=== PATIENT | female | born 1985 | race Caucasian/White ===

== ENCOUNTER 2023-02-28 04:48 | Inpatient (IN) | payer MEDICAID, SELFPAY ==
[2023-02-28] VITALS (44 sets, daily range): BP systolic 108–157; BP diastolic 50–86; PULSE 60–95; RESP 14–33; TEMP 36.3–37.9; O2SAT 95–100; BMI 23.6
--- NOTE | 2023-02-28 04:00 | RT.EKG_ITS ---
APPROVED REPORT Exam: Resting ECG Reason for Exam: syncope Patient Location: E HR:87 bpm ECG Measurements Heart Rate 87 AXIS CO 187 P 62 QRSd 98 QRS 79 QT 377 T 62 QTc 453 Conclusion Sinus rhythm...normal P axis, V-rate 60- 99 Physician: no stemi
--- NOTE | 2023-02-28 04:00 | DI.CT_ITS ---
Exam(s) CT ABDOMEN PELVIS W EXAM: CT ABDOMEN PELVIS W CLINICAL HISTORY: vomiting, umbilical abdominal pain. TECHNIQUE: Imaging Protocol: Axial computed tomography images with coronal and sagittal reformatted images were created and reviewed CONTRAST MATERIAL: Intravenous: Omnipaque-350 100cc Oral: None COMPARISON: No exams were available for comparison FINDINGS: VISUALIZED LUNG BASES: No nodules nor pleural effusions evident. ABDOMEN: LIVER: There are no focal hepatic lesions evident. No dilated intrahepatic ducts. GALLBLADDER/BILIARY: Gallbladder is contracted. No obvious radiopaque calculi within the lumen. CBD is not dilated. PANCREAS: No evidence of pancreatic mass nor dilatation of the pancreatic duct. SPLEEN: Spleen is not enlarged. No obvious intrasplenic lesions. Splenic and portal veins are paten t. ADRENALS: There are no significant adrenal masses. KIDNEYS:No cysts evident. No solid renal masses. No calculi nor hydronephrosis.. ABDOMINAL AORTA: Abdominal aorta is not enlarged. LYMPH NODES:There is no retroperitoneal nor paraaortic adenopathy. ABDOMINAL WALL: No evidence of significant anterior abdominal wall nor inguinal hernia. GI: Stomach and duodenum are patulous/moderately distended. There also appears to be an enteritis pa ttern throughout most of the small bowel loops. PELVIS: GI: The appendix identified in the anterior-lateral aspect of the right lower quadrant. There is henrietta e periappendiceal fat streaking. Pending size is normal. No radiopaque intraluminal contents noted. No evidence of sigmoid diverticulitis. LYMPH NODES: There is no intrapelvic nor inguinal adenopathy. REPRODUCTIVE: Age-appropriate URINARY BLADDER: No calculi nor obvious masses evident OSSEOUS: No fractures and no significant osseous lesions. Some degenerative disc disease noted at L4-5 level. IMPRESSION: 1. There is some mild stranding in the fat around the appendix. Although the appendix exhibits diomedes l size, this may indicate the presence of appendicitis. Correlation with clinical findings and appro priate blood work recommended. 2. The stomach appears patulous/. The duodenum also appears somewhat patulous. There appears to be an enteritis pattern in the small bowel loops. There is no evidence of small-bowel obstruction. 3. There is no ascites. No free air. First read by [facility]. Report called by myself to hospitalist staff 10/25/2022 9:50 a.m. RADIATION DOSE DELIVERED: 569.65mGy.cm Total DLP DATA REPOSITORY: All CT scans at this facility are submitted to the National Radiology Data Registry (NRDR) Dose Index Registry (DIR) with the [employer] (ACR). RADIATION OPTIMIZATION: All CT scans at this facility use at least one of these dose optimization te chniques: automated exposure control; mA and/or kV adjustment per patient size (includes targeted exa ms where dose is matched to clinical indication); or iterative reconstruction.
--- NOTE | 2023-02-28 04:14 | ED.GENADUL_ITS ---
Discharge Plan Disposition Patient Disposition: Admit to [facility] Discharge Details Chief Complaint: OD/Poison Clinical Impression: Acute appendicitis Primary Care Provider: Dionicio Carvajal ED Provider: Paulino Ramírez Home Meds and New Rx's Prescriptions: No Action tramadol 50 MG tablet 1 tab PO PRN PRN ibuprofen 200 MG tablet 1 tab PO PRN PRN amoxicillin 500 MG tablet 500 mg PO BID Qty: 12 0RF oxycodone-acetaminophen 1 TAB tablet 1 tab PO Q6H PRN Qty: 7 0RF Medical Decision Making 37-year-old female presents today from the senior living system for evaluation of syncope. Patient was at intake, she was evaluated, found to be stable, practitioner left the room and when they returned the patient was found to be unresponsive on the ground. She was given 3 rounds of Narcan, 2 mg each intranasally, and she had a return of her responsiveness after this. Patient was brought to the ER for further assessment. Patient states that she just passed out. She states that she has not taken any illicit substance or fentanyl derivative. She does have a history of regular use of illicit substances but states that she has not taken any recently. Past medical history is positive for depression, anxiety and schizophrenia. Patient also states that for the last 3 to 4 days she has had multiple amounts of vomiting and diarrhea. No blood in her vomitus or stool. She states that currently she does have abdominal pain in the left mid quadrant. She denies any urinary complaints or vaginal discharge. No other complaints at this time. No other modifying factors. She denies any family history of sudden , previous intracranial etiologies, previous heart problems. Exam demonstrates dry mucous membranes, mildly tender abdomen. Suspect dehydration is the cause of her syncope, however differential also includes drug use. We will get a CT scan of the abdomen, rehydrate, monitor closely and reassess. 6:44 AM Laboratory work-up demonstrates mild white count. Renal function stable. Thyroid function normal. test negative. Urinalysis demonstrates no significant abnormality. CT scan shows evidence of a fluid-filled appendix with adjacent fat stranding but no dilatation yet. Concern for acute appendicitis. This seems to correlate with the patient's symptoms of abdominal pain or tenderness. Discussed the case with Dr. Nielsen. He agrees with the plan. We will start Zosyn for antibiotic coverage. We will place admission orders at his request on his behalf. Additionally patient does feel like she is withdrawing from opiates. We will give a clonidine patch in the meantime. I have extensively reviewed the treatment plan with the patient. I have addressed all patient concerns at this time. I have also discussed the plan with the admitting physician and they agree with the current assessment and plan and have agreed to assume responsibility for the patient. All parties demonstrate verbal understanding and agreement with our assessment and plan at this time. The documentation in this chart was dictated using [employer] dictation software. Please excuse any dictation errors. FINDINGS: Limitations: Mild motion artifact. Liver: No focal hepatic lesion identified. Gallbladder and bile ducts: Contracted gallbladder. Pancreas: No CT evidence for acute pancreatitis. Spleen: No splenomegaly. Adrenal glands: Adrenal thickening. Kidneys and ureters: No hydronephrosis or evidence for pyelonephritis. Stomach and bowel: No intestinal obstruction is appreciated. Moderate gastric distension. Appendix: The appendix is identified in the anterolateral right lower quadrant. It is nondilated but contains fluid and there is haziness in the periappendiceal fat. Intraperitoneal space: No free air. Vasculature: No abdominal aortic aneurysm Lymph nodes: Nonspecific mesenteric and retroperitoneal lymph nodes. Urinary bladder: Mild bladder wall thickening. Reproductive: Central hypodensity in the uterus, likely secretory phase endometrium. Small lowdensity foci in the ovaries attributed to physiologic lux nge/follicles. Bones/joints: No pertinent acute abnormality seen. Soft tissues: No pertinent acute abnormality seen. IMPRESSION: 1. Fluid-filled appendix with mild adjacent stranding but without dilatation. Findings are indeterminate but in the appropriate clinical setting very early appendicitis cannot be excluded. Clinical correlation and comparison with prior studies may be helpful. 2. Mild bladder wall thickening. Correlate clinically for possible cystitis. 3. Additional findings as above. 4. THIS REPORT CONTAINS FINDINGS THAT MAY BE CRITICAL TO PATIENT CARE. The findings were verbally communicated via telephone conference with PAULINO RAMÍREZ at 6:17 AM EDT on 02/28/2023. The findings were acknowledged and understood. Thank you for allowing us to participate in the care of your patient. Dictated and Authenticated by: Maureen Lomeli MD 02/28/2023 6:18 AM Eastern Time ([place] & [place] HPI General Date/Time Provider Initiated Documentation: 02/28/23 04:57 . HPI Narrative: 37-year-old female presents today from the senior living system for evaluation of syncope. Patient was at intake, she was evaluated, found to be stable, practitioner left the room and when they returned the patient was found to be unresponsive on the ground. She was given 3 rounds of Narcan, 2 mg each intranasally, and she had a return of her responsiveness after this. Patient was brought to the ER for further assessment. Patient states that she just passed out. She states that she has not taken any illicit substance or fentanyl derivative. She does have a history of regular use of illicit substances but states that she has not taken any recently. Past medical history is positive for depression, anxiety and schizophrenia. Patient also states that for the last 3 to 4 days she has had multiple amounts of vomiting and diarrhea. No blood in her vomitus or stool. She states that currently she does have abdominal pain in the left mid quadrant. She denies any urinary complaints or vaginal discharge. No other complaints at this time. No other modifying factors. She denies any family history of sudden , previous intracranial etiologies, previous heart problems. Related Data Home Medications Medication Instructions Recorded Confirmed amoxicillin 500 mg tablet 500 mg PO BID ##12 04/25/14 ibuprofen 200 mg tablet 1 tab PO PRN PRN 04/25/14 02/28/23 oxycodone-acetaminophen 5 mg-325 1 tab PO Q6H PRN #7 tabs 04/25/14 mg tablet tramadol 50 mg tablet 1 tab PO PRN PRN 04/25/14 04/25/14 Previous Rx's Medication Instructions Recorded amoxicillin 500 mg tablet 500 mg PO BID ##12 04/25/14 oxycodone-acetaminophen 5 mg-325 1 tab PO Q6H PRN #7 tabs 04/25/14 mg tablet Allergies Allergy/AdvReac Type Severity Reaction Status Date / Time Fish Containing Products Allergy Unverified 02/28/23 04:28 General Stated Complaint: OD/Poison [place]: 3 Review of Systems All systems reviewed & are unremarkable except as noted in HPI and below PFSH All Active Problems (Updated 02/28/23 @ 06:48 by Paulino Ramírez DO) Acute appendicitis (Acute) Social History Smoking/Tobacco Use Status: Current every day Smoking risk assessment performed?: Yes Drug use: Daily Substance use type: opiates Exam Narrative Exam Narrative: 1.Const: Well-nourished, Well-developed, appearing stated age 2.Eyes: PERRL, no conjunctival injection, and symmetrical lids. 3.ENT: Atraumatic external nose and ears. Dry MM. Neck: Symmetric, trachea midline, No thyromegaly. 4.CVS: +S1/S2, No murmurs or gallops. Peripheral pulses 2+ and equal in all extremities. Brisk capillary refill in all extremities. 5.RESP: Unlabored respiratory effort. Clear to auscultation bilaterally. No wheezes rales or rhonchi 6.GI: Soft, nondistended. Mild tenderness in the periumbilical region, primarily on the left-hand side. No pain to McBurney's point. Negative Moreland sign. 7.MSK: Normocephalic/Atraumatic, Extremities w/o deformity or ttp No cyanosis or clubbing, Normal movement of all extremities right elbow does demonstrate small area of erythema likely suggestive of mild early cellulitis. 8.Skin: Warm, Dry. No rashes or lesions. Please see musculoskeletal 9.Neuro: batter mixer II-XII grossly intact. Sensation grossly intact, no focal neuro logic deficits. 10.Psych: (AAO) x3. Appropriate mood and affect Course Vital Signs Vital signs: Vital Signs Temperature 36.7 C 02/28/23 04:06 Pulse 79 02/28/23 04:06 Respiratory Rate 18 02/28/23 04:06 Blood Pressure 140/78 02/28/23 04:06 Pulse Oximetry 100 02/28/23 04:06 Temperature 36.7 C 02/28/23 04:06 Temperature Source Skin 02/28/23 04:06 Pulse 79 02/28/23 04:06 Respiratory Rate 18 02/28/23 04:06 Blood Pressure 140/78 02/28/23 04:06 Blood Pressure Position Supine 02/28/23 04:06 Pulse Oximetry 100 02/28/23 04:06 Oxygen Delivery Method Room Air 02/28/23 04:06 Oxygen Flow Rate 0 02/28/23 04:06
[2023-02-28] MEDS: Normal Saline 1,000 ML 1000 ML IV ×2 (04:28→05:36)
[2023-02-28 04:50] LABS: Abs Immature Grans 0.05 10^3/uL (0.0-0.06); Absolute Basophil Count 0.04 10^3/uL (0.0-0.2); Absolute Monocyte Count 0.18 10^3/uL (0.1-0.8); Basophils % 0.3; HCT 41.3 % (36.0-46.0); HGB 13.7 g/dL (11.2-15.7); Immature Grans % 0.4; Lymphocytes % 12.2; MCH 27.1 pg (27.0-33.0); MCHC 33.2 % (32.0-36.0); MCV 82 fL (80-95); MPV 8.9 fL (8.0-11.0); Monocytes % 1.3; Neutrophils % 85.8; Platelet Count 580 10^3/uL (130-400); RBC 5.06 10^6/uL (3.93-5.22); RDW 13.6 % (11.7-14.6); WBC 13.65 10^3/uL (4.4-10.8)
[2023-02-28 04:51] LABS: Absolute Lymphocyte Count 1.67 10^3/uL (1.2-3.4); Absolute Neutrophil Count 11.71 10^3/uL (1.2-6.7)
[2023-02-28 05:10] LABS: ALT 27 U/L (14-59); AST 19 U/L (15-37); Albumin 4.8 g/dL (3.4-5.0); Alkaline Phosphatase 145 U/L (46-116); Anion Gap 14.7 mmol/L (3-11); BUN 27 mg/dL (7-18); Bilirubin, Total 0.5 mg/dL (0.2-1.0); CO2 23.3 mmol/L (21.0-32.0); CREATININE 0.8 mg/dL (0.55-1.02); Calcium 10.3 mg/dL (8.5-10.1); Chloride 94 mmol/L (98-107); Estimated GFR 98.48 (mL/min/1.73m2); Glucose 113 mg/dL (74-106); Lipase 73 U/L (16-77); Potassium 3.5 mmol/L (3.5-5.1); Sodium 132 mmol/L (136-145); TSH (W/Ref FT4) 0.42 uIU/mL (0.36-3.74)
[2023-02-28 05:11] LABS: ETHANOL BLOOD < 3.0 mg/dL (<10)
[2023-02-28] MEDS: Ondansetron 4 MG/2 ML VIAL IVP ×3 (05:11→07:58)
[2023-02-28] MEDS: Ketorolac 15 MG/ML VIAL IVP ×2 (05:11→18:25)
[2023-02-28 05:15] LABS: HCG Quant, Pregnancy 2 mIU/mL (1-3)
[2023-02-28] MEDS: Omnipaque 350 MG/ML 100 ML BTL IJ (05:45)
[2023-02-28] MEDS: Normal Saline - Diluent 50 ML VIAL IJ (05:46)
--- NOTE | 2023-02-28 06:19 | DI.VRAD_ITS ---
PROCEDURE INFORMATION: Exam: CT Abdomen And Pelvis With Contrast Exam date and time: 02/28/2023 5:47 AM Age: 37 years old Clinical indication: Abdominal pain; Periumbilical; Additional info: Vomiting, umbilical abdominal pain TECHNIQUE: Imaging protocol: Computed tomography of the abdomen and pelvis with contrast. Radiation optimization: All CT scans at this facility use at least one of these dose optimization techniques: automated exposure control; mA and/or kV adjustment per patient size (includes targeted exams where dose is matched to clinical indication); or iterative reconstruction. Contrast material: OMNI 350; Contrast volume: 100 ml; Contrast route: INTRAVENOUS (IV); COMPARISON: No relevant prior studies available. FINDINGS: Limitations: Mild motion artifact. Liver: No focal hepatic lesion identified. Gallbladder and bile ducts: Contracted gallbladder. Pancreas: No CT evidence for acute pancreatitis. Spleen: No splenomegaly. Adrenal glands: Adrenal thickening. Kidneys and ureters: No hydronephrosis or evidence for pyelonephritis. Stomach and bowel: No intestinal obstruction is appreciated. Moderate gastric distension. Appendix: The appendix is identified in the anterolateral right lower quadrant. It is nondilated but contains fluid and there is haziness in the periappendiceal fat. Intraperitoneal space: No free air. Vasculature: No abdominal aortic aneurysm. Lymph nodes: Nonspecific mesenteric and retroperitoneal lymph nodes. Urinary bladder: Mild bladder wall thickening. Reproductive: Central hypodensity in the uterus, likely secretory phase endometrium. Small low-density foci in the ovaries attributed to physiologic change/follicles. Bones/joints: No pertinent acute abnormality seen. Soft tissues: No pertinent acute abnormality seen. IMPRESSION: 1. Fluid-filled appendix with mild adjacent stranding but without dilatation. Findings are indeterminate but in the appropriate clinical setting very early appendicitis cannot be excluded. Clinical correlation and comparison with prior studies may be helpful. 2. Mild bladder wall thickening. Correlate clinically for possible cystitis. 3. Additional findings as above. 4. THIS REPORT CONTAINS FINDINGS THAT MAY BE CRITICAL TO PATIENT CARE. The findings were verbally communicated via telephone conference with BEATRIS RAMÍREZ at 6:17 AM EDT on 02/28/2023. The findings were acknowledged and understood. Dictated and Authenticated by: Maureen Lomeli MD. Ordering:LAURA Bob MD
[2023-02-28 06:34] LABS: Bilirubin Small (Negative); Blood Negative (Negative); Clarity Clear (Clear); Glucose Negative (Negative); Ketones >=160 mg/dL (Negative); Leukocyte Esterase Negative (Negative); Nitrite Negative (Negative); Urobilinogen 0.2 mg/dL (Up to 0.2)
[2023-02-28 06:41] LABS: Bacteria Few HPF (Negative); C & S Indicated? No; Crystals Negative HPF (Negative); Epithelial Cells Moderate HPF (Negative); Mucus Moderate (Negative); RBC 0-2 HPF (0-2)
[2023-02-28 06:42] LABS: *AMPHETAMINES SCREEN URINE Negative (Negative); *BARBITURATES SCREEN URINE Negative (Negative); *BENZODIAZEPINES SCREEN URINE Negative (Negative); Cannabinoids THC Positive (Negative); Cocaine Screen,Urine Negative (Negative); METHADONE URINE SCREEN Negative (Negative); OPIATES URINE SCREEN Negative (Negative)
[2023-02-28 06:43] LABS: Tricyclic Antidepressants Negative (Negative)
[2023-02-28] MEDS: PIPERACILLIN/TAZO 3.375 GM in Normal Saline 50 ML IVPB (06:47)
--- NOTE | 2023-02-28 07:10 | W.PM.HP.N ---
Date of service: 02/28/23 Time of Service: 07:10 Assessment and Plan Assessment and plan (1) Acute appendicitis: Status: Acute Assessment and plan: Although the changes around the appendix are mild on the CAT scan, she does have some tenderness in the right hemiabdomen, that does seem consistent with acute appendicitis. I suppose the differential of gastroenteritis is also possible as her stomach is fairly fluid-filled, and the loops of small intestine also suggest enteritis. However, based on all the features together, I do think proceeding with laparoscopic cholecystectomy is low risk, and potentially high benefit. She is already been started on some broad-spectrum antibiotics. We discussed the risks and benefits of laparoscopic appendectomy, and I think she has a good understanding of the procedure. We will make arrangements to proceed with appendectomy today. History of Present Illness History of Present Illness Chief Complaint: abdominal pain with nausea and vomiting Narrative: Frida is 37 years old. Approximately 36 to 48 hours ago she began experiencing crampy abdominal pain. This was associated with some nausea and vomiting. It was sharp and stabbing and radiated across the midportion of her abdomen. It might be a little worse on the right side. There is been some associated diarrhea as well. She is not sure if she has had any fevers. She does not have any significant past medical history Past surgical history is most relevant for a tonsillectomy as a child. Review of Systems Constitutional Constitutional: Reports body ache(s), Reports fatigue, Denies fever(s) and Reports poor appetite ENT Ears, Nose, Mouth, and Throat: Reports system reviewed and no additional complaints, except as documented Cardiovascular Cardiovascular: Reports system reviewed and no additional complaints, except as documented Respiratory Respiratory: Denies chest congestion and Denies cough Gastrointestinal Gastrointestinal: Reports abdominal pain, Reports change in stool character, Reports diarrhea, Reports nausea and Reports vomiting Genitourinary Genitourinary: Reports system reviewed and no additional complaints, except as documented Musculoskeletal Musculoskeletal: Reports system reviewed and no additional complaints, except as documented Neurologic Neurologic: Reports system reviewed and no additional complaints, except as documented Psychiatric Psychiatric: Reports anxiety Endocrine Endocrine: Reports fatigue Hematologic/Lymphatic Hematologic/Lymphatic: Denies easy bleeding and Denies easy bruising PFSH All Active Problems Acute appendicitis (Acute) Social History Smoking/Tobacco Use Status: Current every day Smoking risk assessment performed?: Yes Drug use: Daily Substance use type: opiates Meds Allergies and Home Medications Allergies Allergy/AdvReac Type Severity Reaction Status Date / Time Fish Containing Products Allergy Unverified 02/28/23 04:28 Home Medications Medication Instructions Recorded Confirmed Type amoxicillin 500 mg tablet 500 mg PO BID ##12 04/25/14 Rx ibuprofen 200 mg tablet 1 tab PO PRN PRN 04/25/14 02/28/23 History oxycodone-acetaminophen 5 mg-325 1 tab PO Q6H PRN #7 tabs 04/25/14 Rx mg tablet tramadol 50 mg tablet 1 tab PO PRN PRN 04/25/14 04/25/14 History Exam Const General: cooperative Orientation: alert, awake and oriented x3 HENMT Head: normal to inspection Eyes General: appearance normal, both eyes and all related structures Neck Neck: normal visual inspection, full ROM and trachea midline Resp Effort & Inspection: no cough Auscultation: clear to auscultation bilaterally Cardio Rate: regular rate Rhythm: regular rhythm Heart Sounds: S1 normal and S2 normal GI Palpation: soft, guarding (Across lower abdomen) and tender Percussion: normal to percussion Auscultation: hyperactive bowel sounds Skin General skin exam: no rashes or lesions noted Neuro General: patient alert, patient awake and patient oriented x3 Extrem General: normal to inspection Results Imaging Abdomen CT scan report/results: report reviewed CT scan - pelvis: report reviewed and image reviewed Labs 02/28/23 04:35 02/28/23 04:35 Labs: Laboratory Results - last 24 hr 02/28/23 02/28/23 02/28/23 04:35 04:35 04:35 WBC 13.65 H RBC 5.06 Hgb 13.7 Hct 41.3 MCV 82 MCH 27.1 MCHC 33.2 RDW 13.6 Plt Count 580 H MPV 8.9 Immature Gran % 0.4 Neutrophils % 85.8 Lymphocytes % 12.2 Monocytes % 1.3 Eosinophils % 0.0 Basophils % 0.3 Nucleated RBC % 0.0 Absolute Neutrophils 11.71 H Absolute Lymphocytes 1.67 Absolute Monocytes 0.18 Absolute Eosinophils 0.00 Absolute Basophils 0.04 Sodium 132 L Potassium 3.5 Chloride 94 L Carbon Dioxide 23.3 Anion Gap 14.7 H BUN 27 H Creatinine 0.8 Est GFR (CKD-EPI 2020) 98.48 Glucose 113 H Calcium 10.3 H Total Bilirubin 0.5 AST 19 ALT 27 Alkaline Phosphatase 145 H Total Protein 10.0 H Albumin 4.8 Lipase 73 TSH 0.42 Beta HCG, Quant 2 Urine Color Urine Clarity Urine pH Ur Specific [place] Urine Protein Urine Ketones Urine Blood Urine Nitrite Urine Bilirubin Urine Urobilinogen Ur Leukocyte Esterase Urine RBC Urine WBC Ur Epithelial Cells Urine Crystals Urine Bacteria Urine Mucus Ur Culture Indicated? Urine Glucose Urine Opiates Screen Urine Methadone Screen Ur Barbiturates Screen Ur Tricyclics Screen Ur Amphetamines Screen U Benzodiazepines Scrn Urine Cocaine Screen Ur THC Screen Ethyl Alcohol < 3.0 02/28/23 02/28/23 05:54 05:54 WBC RBC Hgb Hct MCV MCH MCHC RDW Plt Count MPV Immature Gran % Neutrophils % Lymphocytes % Monocytes % Eosinophils % Basophils % Nucleated RBC % Absolute Neutrophils Absolute Lymphocytes Absolute Monocytes Absolute Eosinophils Absolute Basophils Sodium Potassium Chloride Carbon Dioxide Anion Gap BUN Creatinine Est GFR (CKD-EPI 2020) Glucose Calcium Total Bilirubin AST ALT Alkaline Phosphatase Total Protein Albumin Lipase TSH Beta HCG, Quant Urine Color Yellow Urine Clarity Clear Urine pH 7.0 Ur Specific [place] 1.020 Urine Protein 100 H Urine Ketones >=160 H Urine Blood Negative Urine Nitrite Negative Urine Bilirubin Small H Urine Urobilinogen 0.2 Ur Leukocyte Esterase Negative Urine RBC 0-2 Urine WBC 3-5 Ur Epithelial Cells Moderate Urine Crystals Negative Urine Bacteria Few Urine Mucus Moderate Ur Culture Indicated? No Urine Glucose Negative Urine Opiates Screen Negative Urine Methadone Screen Negative Ur Barbiturates Screen Negative Ur Tricyclics Screen Negative Ur Amphetamines Screen Negative U Benzodiazepines Scrn Negative Urine Cocaine Screen Negative Ur THC Screen Positive A Ethyl Alcohol Last Vital Signs Temp 98.1 F 02/28/23 04:06 Pulse 77 02/28/23 05:31 Resp 16 02/28/23 05:31 BP 132/79 02/28/23 05:31 Pulse Ox 100 02/28/23 05:31 Time Spent Time spent with Patient: 40-54 minutes Time was spent: preparing to see the patient(eg.review tests), referring, communicating with other health career discovery teacher, indepentently interpreting results and counseling the patient
--- NOTE | 2023-02-28 07:24 | W.ANESPRE ---
General Info Date of Service Date Performed: 02/28/23 Height: 5 ft 3 in Weight: 60.5 kg Body Mass Index (BMI): 23.6 Surgical Procedure: Operation Date: 02/28/23 13:10 Proposed Procedure Side Surgeon p Cholecystectomy Laparoscopic Christiano Nielsen MD Meds Allergies and Home Medications Allergies Allergy/AdvReac Type Severity Reaction Status Date / Time Fish Containing Products Allergy Unverified 02/28/23 04:28 Home Medication Medication Instructions Recorded ibuprofen 200 mg tablet 1 tab PO PRN PRN 04/25/14 Current Visit Medications: Current Medications Generic Name Dose Route Start Last Admin Trade Name Freq PRN Reason Stop Dose Admin Hydromorphone HCl 1 mg 02/28/23 07:11 Hydromorphone 2 Mg/Ml Syr IVP Q4H PRN PRN Ringer's Solution 1,000 mls @ 75 mls/hr 02/28/23 07:15 IV INFUSION LAVONNE Acetaminophen 1,000 mg in 100 mls @ 400 mls/hr 02/28/23 07:15 Ofirmev IVPB Q6H LAVONNE IV Miscellaneous Supplies 1 each 02/28/23 06:30 Iv Access-Emergency Dept IV DIRECTED LAVONNE Iohexol 100 ml 02/28/23 05:45 02/28/23 05:45 Omnipaque 350 Mg/Ml 100 Ml Btl IJ 03/30/23 23:59 100 ml DIRECTED LAVONNE Administration Ondansetron HCl 4 mg 02/28/23 07:11 Ondansetron 4 Mg/2 Ml Vial IVP Q4H PRN PRN Sodium Chloride 50 ml 02/28/23 05:45 02/28/23 05:46 Normal Saline - Diluent 50 Ml Vial IJ 50 ml .FOR DI USE LAVONNE Administration Sodium Chloride 0 ml 02/28/23 06:29 Normal Saline Flush 10 Ml Syr IVP PRN PRN PFSH Active Problems Active Problems: Problem Status Onset Code Acute appendicitis K35.80 Tobacco Smoking/Tobacco Use Status: Current every day Substance Use Substance use: Daily Substance use type: opiates Vital Signs and Lab Results Vital Signs Most Recent Vital Signs in EMR: Most Recent Vital Signs Temp Pulse Resp BP Pulse Ox 36.7 C 77 16 132/79 100 02/28/23 04:06 02/28/23 05:31 02/28/23 05:31 02/28/23 05:31 02/28/23 05:31 Lab Results 02/28/23 04:35 02/28/23 04:35 Blood Type / Crossmatch: No Data to Display Complete Blood Count: White Blood Count 13.65 10^3/uL (4.4-10.8) H 02/28/23 04:35 Red Blood Count 5.06 10^6/uL (3.93-5.22) 02/28/23 04:35 Hemoglobin 13.7 g/dL (11.2-15.7) 02/28/23 04:35 Hematocrit 41.3 % (36.0-46.0) 02/28/23 04:35 Platelet Count 580 10^3/uL (130-400) H 02/28/23 04:35 Complete Metabolic Panel: Sodium 132 mmol/L (136-145) L 02/28/23 04:35 Potassium 3.5 mmol/L (3.5-5.1) 02/28/23 04:35 Chloride 94 mmol/L (98-107) L 02/28/23 04:35 Carbon Dioxide 23.3 mmol/L (21.0-32.0) 02/28/23 04:35 BUN 27 mg/dL (7-18) H 02/28/23 04:35 Creatinine 0.8 mg/dL (0.55-1.02) 02/28/23 04:35 Est GFR (CKD-EPI 2020) 98.48 (mL/min/1.73m2) 02/28/23 04:35 Calcium 10.3 mg/dL (8.5-10.1) H 02/28/23 04:35 Albumin 4.8 g/dL (3.4-5.0) 02/28/23 04:35 Glucose 113 mg/dL (74-106) H 02/28/23 04:35 Liver Function Panel: Alanine Aminotransferase (ALT/SGPT) 27 U/L (14-59) 02/28/23 04:35 Aspartate Amino Transf (AST/SGOT) 19 U/L (15-37) 02/28/23 04:35 Coagulation Panel: No Data to Display Cardiac Panel: No Data to Display Arterial Blood Gas: No Data to Display Venous Blood Gas: No Data to Display Pancreas Panel: Lipase 73 U/L (16-77) 02/28/23 04:35 Thyroid Panel: Thyroid Stimulating Hormone (TSH) 0.42 uIU/mL (0.36-3.74) 02/28/23 04:35 Infectious Disease: No Data to Display Blood Cultures: No Data to Display Toxicology Panel: Ethyl Alcohol Level < 3.0 mg/dL (<10) 02/28/23 04:35 Urine Amphetamines Screen Negative (Negative) 02/28/23 05:54 Urine Benzodiazepines Screen Negative (Negative) 02/28/23 05:54 Urine Barbiturates Screen Negative (Negative) 02/28/23 05:54 Urine Cocaine Screen Negative (Negative) 02/28/23 05:54 Urine Methadone Screen Negative (Negative) 02/28/23 05:54 Urine Opiates Screen Negative (Negative) 02/28/23 05:54 Ur Tricyclic Antidepressants Screen Negative (Negative) 02/28/23 05:54 Ur Tetrahydrocannabinol (THC) Scrn Positive (Negative) A 02/28/23 05:54 Panel: Beta HCG, Quantitative 2 mIU/mL (1-3) 02/28/23 04:35 Imaging and Studies Imaging and Studies Study information below may be from another EMR and interpreted by another provider. Please see original notes in EMR for more complete details. EKG Summary: 02/27: sinus. Anesthesia Assessment and Plan Anesthesia History Personal History: No History of Anesthesia Complications Family History: No Family History of Anesthesia Complications Exercise Tolerance Exercise Tolerance: Metabolic Equivalents>4 Cardiac & Pulmonary Exam Cardiac Exam: Normal S1/S2 Heart Sounds Pulmonary Exam: Clear Bilateral Breath Sounds Implantable Cardiac Device Does patient have a Pacemaker or an ICD?: No Airway Exam Known Difficult Airway: No Mallampati Class: 2 Mouth Opening: Normal (> 3cm) Thyromental Distance: Greater than 3 cm Neck Range of Motion: Full ROM Neck Circumference: Normal Teeth Condition: Generalized Poor Dentition Airway Comments: 1-2 teeth on the bottom, denies that they are loose. ASA Classification ASA Score: ASA 2 Emergency Case?: Yes NPO Status NPO Status: NPO Clears >2 hours, Solids >8 hours (states hasn't eaten a full meal in 3 days, but denies being hungry. ) Status Status: Negative HCG Anesthesia Plan Resuscitation Status: Full Code Anesthesia Technique: General Anesthesia Airway Planned: Endotracheal Tube Monitors Used: Standard Monitors Preoperative Comments:: 37 yo female presented to the ED this AM with syncope. She was given narcan x 3 IN (2 mg each) and she regained consciousness. She denies the use of illicit substances recently (last dose of fentanyl was 3 days ago, was using 5 grams a day she states) and that she just passed out (urine screen only positive for THC). She endorses Abd pain for a day or two and was found to has appendicitis. Currently inpt getting clonidine, pip/reynaldo, ketorolac, ondans. IV access is PIV in left upper arm. Sig PMHx: smoker, asthma (occ albuterol use, mostly with exertion), GERD (states does not seem to be diet related and she will just wake up with it), opioid abuse. Discussed plan for GAETT, +/- midline catheter placement, and non-opioid pain adjuncts combined with opioids as needed. Also discussed that it is possible to lose her remaining teeth given their condition.
[2023-02-28] MEDS: cloNIDine 0.1 MG PATCH TD (07:37)
[2023-02-28] MEDS: Lactated Ringers 1,000 ML 75 ML IV (07:40)
[2023-02-28] MEDS: HYDROmorphone 2 MG/ML SYR 1 MG IVP ×3 (07:59→20:22)
[2023-02-28] MEDS: ACETAMINOPHEN 1,000 MG/100 ML BTL 400 MG IVPB ×3 (08:20→18:26)
[2023-02-28] MEDS: HYDROmorphone 2 MG/ML SYR IVP ×3 (10:53→22:58)
[2023-02-28] MEDS: Normal Saline Flush 10 ML SYR IVP ×3 (10:54→20:23)
[2023-02-28] MEDS: Lactated Ringers 1,000 ML 30 ML IV (12:56)
--- NOTE | 2023-02-28 13:44 | APP_PTH ---
PATIENT: Frida Calvin LOC: [id number]#:[id number] AGE/SX: 37/F ROOM: 230 RE02/28/[address]: Christiano Nielsen MD : [id number] BED: A DIS: 03/01/2023 SPEC #: [id number] RECD: 02/28/23 16:15 STATUS: SOUGlen REQ #: [id number] DEE: 02/28/23 13:[address]: Christiano Nielsen DEPT: Surgical Specimen RECD BY: Tamara Yousif ENTERED: 02/28/23 16:15 SP TYPE: Appendix OTHR DR: Dionicio Carvajal Tissues: 1 - APPENDIX NOT INCIDENTAL Procedures: GROSS AND MICRO LEVEL 3 Comments: [id number]
[2023-02-28] MEDS: Bupivacaine 0.25% Pres-Free 30 ML VIAL (14:00)
--- NOTE | 2023-02-28 14:32 | ROE_ITS ---
Date of service: 02/28/23 Time of Service: 14:32 Operative Note Operative Note DATE OF PROCEDURE: 02/28/23 PRE-OP DIAGNOSIS: Enthesitis POST-OP DIAGNOSIS: other (Enteritis) PROCEDURE: Laparoscopic appendectomy SURGEON: Christiano Nielsen NETWORK SUPPORT TECHNICIAN: Roma Scherer ANESTHESIA TYPE: General LMA/ETT Refer to Anesthesia Record ESTIMATED BLOOD LOSS: 25 PATHOLOGY: other (Appendix) COMPLICATIONS: None Patient was transported to: PACU Patient's condition: stable Indications: Frida is a 37-year-old woman with approximately 48 hours of increasing abdominal pain that radiated across the lower abdomen. This was associated with nausea and vomiting. She underwent a CAT scan that raise the possibility of acute appendicitis. Findings: Dilated fluid-filled loops of small intestine more consistent with enteritis Procedure Description: After the induction of general anesthesia, I prepped and draped the anterior abdominal wall in the usual fashion. Next, I made an umbilical incision. I opened the fascia under direct vision. Using Vicryl stitches, I then affixed a 12 mm operating port to the umbilical fascia. I began insufflated the peritoneal cavity. Next, I inserted a 5 mm scope and examine the underlying tissue. There was no evidence of any trauma from the insertion. Next, with the assistance of the laparoscope, I placed 5 mm port in the left lower quadrant and suprapubic position. I then moved the scope into the left lower quadrant, and positioned the patient with some Trendelenburg and left side down. I started by examining the area of the right lower quadrant. I reflected the greater omentum cephalad and identified the terminal ileum. I traced this to the insertion at the cecum and then identified the base of the appendix at the confluence of the cecal tenia. The appendix was long, and without much in flammation. Generally it was soft. I quickly examined some of the surrounding bowel. There was some injection and erythema of the majority of the small intestine, which was slightly dilated and fluid-filled. Grossly, this all appeared consistent enteritis. Given our preoperative discussion, I did feel it was reasonable to proceed with completion of the appendectomy at that point. I divided the mesoappendix with sequential fires of the LigaSure device. The appendix was then from the base of the cecum with a fire of the ALE stapler using a purple load. The appendix was placed in Endo Catch bag and removed by way of the umbilical port site. Patient was placed back in neutral positioning. The staple line was examined and appeared healthy. Ports were removed under the direct vision of the camera, prior to removal of the umbilical port. The fascia was closed with interrupted Vicryl stitches. Skin was irrigated and closed with subcuticular stitches bandages were applied, the patient was extubated and transferred to the recovery unit.
[2023-02-28] MEDS: Droperidol 5 MG/2 ML VIAL 0.625 MG IVP (14:43)
--- NOTE | 2023-02-28 15:12 | W.ANESPOSTOP ---
Postoperative Evaluation Date, Time and Location Date Performed: 02/28/23 Time Performed: 15:12 Patient Location: PACU Vital Signs Most Recent Imported Vital Signs: Most Recent Vital Signs Temp Pulse Resp BP Pulse Ox 37.2 C 74 14 157/66 H 96 02/28/23 15:02 02/28/23 15:02 02/28/23 15:02 02/28/23 15:02 02/28/23 15:02 Pain Score Most Recent Pain Score: Most Recent Pain Score Pain Level 3 02/28/23 15:02 Assessment Mental Status: Awake (Alert & Oriented to Patient Baseline) Airway and Respiratory Function: Patent airway with normal (patient baseline) respiratory exam Cardiovascular Function: Hemodynamically Stable Hydration Status: Adequately Hydrated Nausea & Vomiting: No Nausea or Vomiting Pain: Pain is tolerable per patient Peripheral Nerve Block: Patient did not receive a nerve block
[2023-02-28] MEDS: Gabapentin 300 MG CAP PO (19:15)
[2023-02-28] MEDS: oxyCODONE 5 MG TAB PO (19:16)
[2023-02-28] MEDS: Methocarbamol 750 MG TAB PO (19:16)
[2023-02-28 22:42] LABS: HCG Qual (Urine) Negative
[2023-02-28] MEDS: Prochlorperazine 10 MG/2 ML VIAL 5 MG IVP (22:57)
[2023-03-01] MEDS: Normal Saline Flush 10 ML SYR IVP ×2 (00:51→08:23)
[2023-03-01] MEDS: Ketorolac 15 MG/ML VIAL IVP ×2 (00:51→12:00)
[2023-03-01] MEDS: ACETAMINOPHEN 1,000 MG/100 ML BTL 400 MG IVPB (00:51)
[2023-03-01] MEDS: Lactated Ringers 1,000 ML 75 ML IV (00:56)
[2023-03-01] MEDS: HYDROmorphone 2 MG/ML SYR IVP ×3 (02:05→08:23)
[2023-03-01] MEDS: Prochlorperazine 10 MG/2 ML VIAL 5 MG IVP ×2 (02:15→08:22)
[2023-03-01 03:34] VITALS: BP 128/69; PULSE 80; RESP 16; TEMP 37.1; O2SAT 96
[2023-03-01 07:20] VITALS: BP 140/73; PULSE 65; RESP 22; TEMP 37.1; O2SAT 93
[2023-03-01] MEDS: Gabapentin 300 MG CAP PO (08:16)
[2023-03-01] MEDS: Methocarbamol 750 MG TAB PO (08:16)
[2023-03-01] MEDS: Polyethylene Glycol 3350 17 GM PACKET PO (08:21)
--- NOTE | 2023-03-01 09:58 | DSE_ITS ---
Date of service: 03/01/23 Time of Service: 09:58 DS: Diagnosis Discharge Diagnosis (1) Acute appendicitis: Status: Acute Asessment and Plan: Status post appendectomy Discharge Plan Disposition Patient Disposition: [facility] Condition: Improving Discharge Details Reason For Visit: Appendicitis Admit Date/Time: 02/28/23 06:30 Admit Provider: Christiano Nielsen Attending Provider: Christiano Nielsen Primary Care Provider: Dionicio Carvajal Hospital Course Hospital Course: Frida is a 37-year-old woman who comes to the emergency department with 2 days of abdominal pain, with some associated nausea vomiting and some loose stools. She underwent a CAT scan of the abdomen and pelvis that suggested possible early appendicitis. She had a leukocytosis and some tenderness in the lower abdomen. She underwent laparoscopic appendectomy. Generally, the appendix was relatively normal-appearing, and the overall picture appeared more consistent with enteritis. Postoperative course was uncomplicated. She tolerated diet without any difficulty and was discharged to the care of [facility]. Home Meds and New Rx's Prescriptions: New tramadol 50 mg tablet 50 mg PO Q8H PRNQty: 12 0RF Rx Instructions: Take 1 tablet by mouth up to every 8 hours if needed for severe pain tramadol 50 mg tablet 50 mg PO Q8H PRNQty: 24 0RF Rx Instructions: Take 1 tablet by mouth up to every 8 hours if needed for severe pain. Continued ibuprofen 200 MG tablet 1 tab PO PRN PRN Discharge Instructions Instructions: Laparoscopic Appendectomy (DC) Additional Instructions: Frida, we are glad that you are making a nice recovery after your operation. As you probably recall, you came to the emergency department with abdominal pain and concern for an abdominal infection. He underwent a CT scan that suggested the possibility of appendicitis, and we brought you to the operating room for laparoscopic appendectomy. Talked about afterwards, your appendix was relatively normal-appearing, and I suspect the true diagnosis here is more enteritis, which is typically an infection caused by viruses and is self- limited. Obviously, withdrawal of some of the substances that you have been using could also explain the symptoms that you have been experiencing. With regards to the surgery, expect to have some pain at the incision site over the next few days. Tylenol and ibuprofen are generally enough to manage them, but I recommend intermittent treatment with opioid-based medications such as tramadol if needed for the next day or 2. Referrals: Christiano Nielsen MD [ [facility] STAFF PHYSICIAN] - (March 13 at 11:15 AM) Activity:: 10 pound lifting restrict Equipment/Supplies:: No Equipment Needed Diet:: As Tolerated DS: Summary Time Spent with Patient providing and/or coordinating discharge services: Less than 30 minutes Status at Discharge Functional status at discharge: independent ambulation Overall status at discharge: patient is progressing back to baseline Mental Status: mental status grossly normal Speech and Movement: speech and movement normal Mood: congruent mood Affect: normal affect Exam GI Other: Abdomen is soft and nondistended. Incisions are clean. There are no signs of bleeding. Psych Mental Status: mental status grossly normal Speech and Movement: speech and movement normal Mood: congruent mood Affect: normal affect DS: Data Vitals/I&O Vitals and I&O: Vital Signs Temperature 98.8 F 03/01/23 07:20 Temperature Source Tympanic 03/01/23 07:20 Pulse 65 03/01/23 07:20 Pulse Rhythm Regular 02/28/23 23:23 Pulse 86 02/28/23 08:00 Respiratory Rate 22 03/01/23 07:20 Respiratory Effort Normal 02/28/23 23:23 Respiratory Depth Normal 02/28/23 23:23 Respiratory Pattern Normal 02/28/23 04:10 Blood Pressure 140/73 03/01/23 07:20 Blood Pressure Mean 91 02/28/23 05:31 Blood Pressure Position Supine 02/28/23 04:06 Pulse Oximetry 93 03/01/23 07:20 Oxygen Delivery Method Room Air 03/01/23 07:20 Oxygen Flow Rate 0 03/01/23 07:20 Pain Level 10 03/01/23 08:23 Intake & Output 02/28/23 02/28/23 03/01/23 11:59 23:59 11:59 Intake Total 2156.667 / 4403.167 2246.5 / 4403.167 250 / 250 Output Total 825 / 825 800 / 800 Balance 2156.667 / 3578.167 1421.5 / 3578.167 -550 / -550 Weight 133 lb 6.075 oz Intake: IV 2156.667 / 4163.167 2006.5 / 4163.167 250 / 250 Oral 240 / 240 Output: Urine 825 / 825 800 / 800 Other: Urine Color Straw Yellow Urine Appearance Cloudy Clear Urine Odor None Emesis Description None Data Completed and Pending Labs on day of discharge: Labs from last 24 hours 02/28/23 22:05 Urine HCG, Qual Negative 02/28/23 20:15 Blood Blood Culture - Pending 02/28/23 04:37 Blood Blood Culture - Pending Preliminary micro results at discharge 02/28/23 20:15 Blood Culture - Pending Blood 02/28/23 04:37 Blood Culture - Pending Blood PFSH All Active Problems Acute appendicitis (Acute) Surgical History S/P laparoscopic appendectomy (~02/2023) Social History Smoking/Tobacco Use Status: Current every day Smoking risk assessment performed?: Yes Drug use: Daily Substance use type: opiates Housing: other Time Spent with Patient Time Spent with Patient: <45 minutes Time was spent: preparing to see the patient(eg.review tests), indepentently interpreting results, counseling the patient and care coordination
[2023-03-01] MEDS: Buprenorphine/Naloxone 4 mg/1 mg FILM 1 EACH SL (10:42)
[2023-03-01 11:27] VITALS: BP 150/84; PULSE 78; RESP 16; TEMP 37.2; O2SAT 98
== END 2023-03-01 13:41 | DRG 342 ==
LOC: ER 08:01 → MS 08:50
PROVIDERS: Admitting Provider Surgery; Emergency Provider Student in an Organized Health Care Education/Training Program; PCP Specialist/Technologist Athletic Trainer; Visit Provider Surgery
PROC: 0DTJ4ZZ Resection of Appendix, Percutaneous Endoscopic Approach (ICD-10-PCS; CPT 44970; principal; 2023-02-28 13:00)
DX: K35.80 Unspecified acute appendicitis (principal); F11.20 Opioid dependence, uncomplicated; L02.413 Cutaneous abscess of right upper limb; K52.89 Other specified noninfective gastroenteritis and colitis; R11.2 Nausea with vomiting, unspecified; R19.7 Diarrhea, unspecified; F17.210 Nicotine dependence, cigarettes, uncomplicated; R56.9 Unspecified convulsions; F25.9 Schizoaffective disorder, unspecified; G83.84 Todd's paralysis (postepileptic); R20.2 Paresthesia of skin; F10.11 Alcohol abuse, in remission
CPT/HCPCS: 44970; 36415; 70496; 70498; 80053; 80307; 81025; 83690; 85027; 87040; 87077; 87798; 93005; 96361; 96365; 96367; 96375; 96376; 99285; J1650; 70551; 74177; 80320; 81003; 81015; 83735; 84443; 84702; 85025; 85049; 85610; 85730; 86618; 87070; 87186; 88304; 93010; 99223; 99233; 99238; 99284; J0131; J0690; J0780; J1100; J1170; J1790; J1885; J1953; J2060; J2250; J2405; J2543; J2704; J3010; J3475; J3490

== ENCOUNTER 2023-03-01 23:04 | Inpatient (IN) | payer MEDICAID, SELFPAY ==
--- NOTE | 2023-03-01 23:00 | DI.CT_ITS ---
Exam(s) CT BRAIN NECK CTA EXAM: CT BRAIN NECK CTA CLINICAL HISTORY: surgery yesterday, new seizure now w/ L deficits. TECHNIQUE: Imaging Protocol: Axial CT angiography was performed with multi-slice acquisition and mu lti-planar and/or 3D reconstructions. CONTRAST MATERIAL: Intravenous: Omnipaque 350 contrast volume:100 mL COMPARISON: CT CT ABDOMEN PELVIS W from 02/28/2023 FINDINGS: CT Head W/O and W: Ventricles and Extra axial spaces: Normal in size and morphology for the patient's age. Hemorrhage: None. Cerebral parenchyma: Normal. Midline shift: None. Brainstem/Cerebellum: Normal. Calvarium: Normal. Visualized Paranasal sinuses/Mastoids: Clear. Soft Tissues: Unremarkable. Enhancement: Unremarkable. CTA Neck W: Common Carotid: Right: No dissection, occlusion or significant stenosis. Left: No dissection, occlusion or significant stenosis. External Carotid: Right: No occlusion or significant stenosis. Left: No occlusion or significant stenosis. Internal Carotid: Right: No dissection, occlusion or significant stenosis. Left: No dissection, occlusion or significant stenosis. Vertebral Artery: Right: No dissection, occlusion or significant stenosis. Left: No dissection, occlusion or significant stenosis. Lung Apices: Normal. Bones: Within normal limits for the patient's age. Soft Tissues: Normal. Thyroid gland: Unremarkable. CTA Brain W: Internal Carotid Arteries: Normal. Anterior Cerebral Arteries: Right: No aneurysm, occlusion or significant stenosis. Left: No aneurysm, occlusion or significant stenosis. Middle Cerebral Arteries: Right: No aneurysm, occlusion or significant stenosis. Left: No aneurysm, occlusion or significant stenosis. Posterior Cerebral Arteries: Right: No aneurysm, occlusion or significant stenosis. Left: No aneurysm, occlusion or significant stenosis. Vertebral Arteries: Right: No aneurysm, occlusion or significant stenosis. Left: No aneurysm, occlusion or significant stenosis. Basilar Artery: No aneurysm, occlusion or significant stenosis. IMPRESSION: 1. No large vessel occlusion or significant stenosis on the CT angiography of the head. 2. No acute intracranial process. 3. No occlusion or significant stenosis on the CT angiography of the neck. RADIATION DOSE DELIVERED: 1,731.94mGy.cm Total DLP DATA REPOSITORY: All CT scans at this facility are submitted to the National Radiology Data Registry (NRDR) Dose Index Registry (DIR) with the [employer] (ACR). RADIATION OPTIMIZATION: All CT scans at this facility use at least one of these dose optimization te chniques: automated exposure control; mA and/or kV adjustment per patient size (includes targeted exa ms where dose is matched to clinical indication); or iterative reconstruction.
--- NOTE | 2023-03-01 23:00 | RT.EKG_ITS ---
APPROVED REPORT Exam: Resting ECG Reason for Exam: ams Patient Location: E HR:62 bpm ECG Measurements Heart Rate 62 AXIS MD 177 P 4 QRSd 92 QRS 84 QT 370 T 70 QTc 375 Conclusion Sinus rhythm...normal P axis, V-rate 60- 99 Nonspecific T abnrm, anterolateral leads...T <-0.10mV, I aVL V2-V6 Physician: no stemi
[2023-03-01 23:05] VITALS: BP 129/76; PULSE 82; RESP 16; TEMP 36.6; O2SAT 100
[2023-03-01] MEDS: ACETAMINOPHEN 1,000 MG/100 ML BTL 400 MG IVPB (23:23)
[2023-03-01 23:31] LABS: Abs Immature Grans 0.03 10^3/uL (0.0-0.06); Absolute Basophil Count 0.04 10^3/uL (0.0-0.2); Absolute Lymphocyte Count 1.69 10^3/uL (1.2-3.4); Absolute Monocyte Count 0.44 10^3/uL (0.1-0.8); Absolute Neutrophil Count 5.74 10^3/uL (1.2-6.7); Basophils % 0.5; HCT 39.4 % (36.0-46.0); Immature Grans % 0.4; Lymphocytes % 21.3; MCH 27.6 pg (27.0-33.0); MCV 84 fL (80-95); MPV 8.2 fL (8.0-11.0); Monocytes % 5.5; Neutrophils % 72.3; Platelet Count 428 10^3/uL (130-400); RBC 4.71 10^6/uL (3.93-5.22); RDW 13.7 % (11.7-14.6); RDW-SD 42.5 fL; WBC 7.94 10^3/uL (4.4-10.8)
--- NOTE | 2023-03-01 23:33 | W.ED.GENAD ---
Discharge Plan Disposition Patient Disposition: Admit to [facility] Discharge Details Chief Complaint: Seizure Clinical Impression: Seizure, Sensation disorder Primary Care Provider: Dionicio Carvajal ED Provider: Paulino Gusman Home Meds and New Rx's Prescriptions: No Action ibuprofen 200 MG tablet 1 tab PO PRN PRN tramadol 50 mg tablet 50 mg PO Q8H PRNQty: 24 0RF Rx Instructions: Take 1 tablet by mouth up to every 8 hours if needed for severe pain. Medical Decision Making This is a pleasant 37-year-old female who has a past medical history of schizophrenia, and recent lap appendectomy performed yesterday, who returns from nursing home by ambulance for evaluation of seizure. Patient had an uncomplicated medical and surgical stay over the last 48 hours. She initially had an episode of syncope at the nursing home, which was brought about by 2 days of nausea vomiting and diarrhea. CT scan at that time showed evidence concerning for enteritis and possible early appendicitis. Laparoscopy was performed, enteritis was confirmed, decision to proceed with appendectomy was completed, and surgery went well. Patient tolerated procedure well and was eventually discharged back to nursing home. This evening at nursing home the patient had a seizure. It lasted for 5 minutes with a 1 to 2-minute postictal phase. There was tongue biting. Patient did not micturate on herself. It was witnessed by senior care staff. Patient was brought in by ambulance. Blood sugar and vital signs were stable. Currently on arrival the patient complains of numbness over the entire left side of her body. Patient also has difficulty speaking, and moving her tongue. She denies any history of seizures. She currently denies any family history of seizures. She denies any headache or chest pain. She does admit to abdominal pain secondary to the surgery. No other complaints at this time. Patient was given tramadol 50 mg every 8 hours for pain. No other new medications. Exam demonstrates female with questionable minimal mild left-sided facial droop. Tongue seems to be isolated and located on the left-hand side with slight deviation to that side. Notably diminished sensation on the entire left side of her body including face arm and leg chest and abdomen. Movements are otherwise normal. Differential includes seizure secondary to initiation of tramadol, stroke less likely. We will get a CT/CTA of the brain, rehydrate gently, check labs and electrolytes, monitor closely and reassess. At this time she has no headache, no nuchal rigidity, no neck pain, and no fever. Symptoms appear clinically inconsistent with meningitis. 1:22 AM Laboratory work-up has returned, no white count bandemia or left shift. Platelets slightly elevated at 428. Electrolytes normal, calcium and magnesium normal. Alcohol level negative. CT/CTA is read as negative per virtual radiology. No evidence of abscess, or other significant abnormality. No evidence of stroke. On reassessment patient's symptoms have slightly improved. She still demonstrates an insensate component on the left, tongue movement appears quite more normal. She does not demonstrate facial asymmetry at this time. Affect is slightly atypical. She continues to have no headache or neck pain. She states that she does feel like she is having a panic attack though. She does still complain of mild abdominal achiness postoperatively. No signs of an acute surgical component though. With no white count or fever symptoms appearing consistent with postoperative abscess. Symptoms remain inconsistent with meningitis at this time. I did contact [facility] and discussed the case with Dr. Onofre. 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 Symptoms appear clinically inconsistent with a stroke. tPA administration would be contraindicated in this area with a seizure, and her improving symptoms. Additionally symptoms appear inconsistent with meningitis currently clinically, no indication for LP at this time. With the recent abdominal procedure neurology is concern for potential but less likely mild cerebritis. Neurology does recommend urgent but not emergent MRI over the next few days. Neurology recommends continued observation and antiepileptics. We will give 2 g of Keppra at this time, with neurology recommendations for 750 twice daily after this. I have ordered a tick and Lyme panel as well and we are pending these results. I discussed the case with the hospitalist Dr. Glez, he agrees with the assessment and plan. I will place admission orders on his behalf at his request. I have extensively reviewed the treatment plan with the patient. I have addressed all patient concerns at this time. I have also discussed the plan with the admitting physician and they agree with the current assessment and plan and have agreed to assume responsibility for the patient. All parties demonstrate verbal understanding and agreement with our assessment and plan at this time. The documentation in this chart was dictated using [employer] dictation software. Please excuse any dictation errors. FINDINGS: ANTERIOR CIRCULATION: Right internal carotid artery: Intracranial segment is patent with no significant stenosis or occlusion. No aneurysm. Right middle cerebral artery: No occlusion or significant stenosis. No aneurysm. Right anterior cerebral artery: No occlusion or significant stenosis. No aneurysm. Left internal carotid artery: Intracranial segment is patent with no significant stenosis. No aneurysm. Left middle cerebral artery: No occlusion or significant stenosis. No aneurysm Left anterior cerebral artery: No occlusion or significant stenosis. No aneurysm. POSTERIOR CIRCULATION: Right vertebral artery: No occlusion or significant stenosis. No aneurysm. Left vertebral artery: No occlusion or significant stenosis. No aneurysm. Basilar artery: No occlusion or significant stenosis. No aneurysm. Right posterior cerebral artery: No occlusion or significant stenosis. No aneurysm. Left posterior cerebral artery: No occlusion or significant stenosis. No aneurysm. HEAD: Brain: There is no acute intracranial hemorrhage, mass effect or midline shift. There is no large acute territorial cerebral infarct. Cerebral ventricles: Normal. No ventriculomegaly. Bones/joints: Unremarkable. No acute fracture. Paranasal sinuses: Visualized sinuses are normal. No fluid levels. Mastoid air cells: Visualized mastoids are normal. No mastoid effusion. Soft tissues: Unremarkable. IMPRESSION: 1. No acute intracranial hemorrhage, mass effect or midline shift. 2. No arterial occlusion or significant stenosis. ASSESSMENT: ASPECTS (Thu Stroke Program Early CT Score) is 10. PROCEDURE INFORMATION: Exam: CTA Neck Without And With Contrast Exam date and time: 03/01/2023 11:33 PM Age: 37 years old Clinical indication: Stroke-like symptoms; Headache; Left facial droop; Additional info: Surgery yesterday, new seizure now w/ L deficits TECHNIQUE: Imaging protocol: Computed tomographic angiography of the neck without and with contrast. 3D rendering (Not supervised by radiologist): MIP and/or 3D reconstructed images were created by the technologist. Radiation optimization: All CT scans at this facility use at least one of these dose optimization techniques: automated exposure control; mA and/or kV adjustment per patient size (includes targeted exams where dose is matched to clinical indication); or iterative reconstruction. Contrast material: OMNI 350; Contrast volume: 100 ml; Contrast route: INTRAVENOUS (IV); COMPARISON: No relevant prior studies available. FINDINGS: Right common carotid artery: No stenosis. No dissection or occlusion. Right internal carotid artery: No stenosis of the extracranial segment. No dissection or occlusion. Right external carotid artery: No occlusion or stenosis of the origin. Left common carotid artery: No stenosis. No dissection or occlusion. Left internal carotid artery: No stenosis of the extracranial segment. No dissection or occlusion. Left external carotid artery: No occlusion or stenosis of the origin. Right vertebral artery: No stenosis. No dissection or occlusion. Left vertebral artery: No stenosis. No dissection or occlusion. Soft tissues: Normal. No significant soft tissue swelling. Bones/joints: No acute fracture. IMPRESSION: No stenosis or occlusion. REFERENCES: NASCET CRITERIA. The degree of stenosis in the cervical segment of the internal carotid artery is based on NASCET criteria. Normal is no stenosis. Mild is less than 50% stenosis. Moderate is 50- 69% stenosis. Severe is 70% to 99% stenosis. Total occlusion is no detectable patent lumen. Thank you for allowing us to participate in the care of your patient. Dictated and Authenticated by: Keesha Stephens MD 03/02/2023 12:21 AM Eastern Time ([place] & [place]) HPI General Date/Time Provider Initiated Documentation: 03/01/23 23:13. HPI Narrative: This is a pleasant 37-year-old female who has a past medical history of schizophrenia, and recent lap appendectomy performed yesterday, who returns from nursing home by ambulance for evaluation of seizure. Patient had an uncomplicated medical and surgical stay over the last 48 hours. She initially had an episode of syncope at the nursing home, which was brought about by 2 days of nausea vomiting and diarrhea. CT scan at that time showed evidence concerning for enteritis and possible early appendicitis. Laparoscopy was performed, enteritis was confirmed, decision to proceed with appendectomy was completed, and surgery went well. Patient tolerated procedure well and was eventually discharged back to nursing home. This evening at nursing home the patient had a seizure. It lasted for 5 minutes with a 1 to 2-minute postictal phase. There was tongue biting. Patient did not micturate on herself. It was witnessed by senior care staff. Patient was brought in by ambulance. Blood sugar and vital signs were stable. Currently on arrival the patient complains of numbness over the entire left side of her body. Patient also has difficulty speaking, and moving her tongue. She denies any history of seizures. She currently denies any family history of seizures. She denies any headache or chest pain. She does admit to abdominal pain secondary to the surgery. No other complaints at this time. Patient was given tramadol 50 mg every 8 hours for pain. No other new medications. Related Data Home Medications Medication Instructions Recorded Confirmed ibuprofen 200 mg tablet 1 tab PO PRN PRN 04/25/14 02/28/23 tramadol 50 mg tablet 50 mg PO Q8H PRN #24 tabs 03/01/23 Previous Rx's Medication Instructions Recorded tramadol 50 mg tablet 50 mg PO Q8H PRN #24 tabs 03/01/23 Allergies Allergy/AdvReac Type Severity Reaction Status Date / Time Fish Containing Products Allergy Intermediate Unverified 03/01/23 23:19 General Stated Complaint: Seizure [place]: 3 Review of Systems All systems reviewed & are unremarkable except as noted in HPI and below PFSH All Active Problems (Updated 03/02/23 @ 01:28 by Paulino Gusman DO) Seizure (Acute) Sensation disorder (Acute) Surgical History S/P laparoscopic appendectomy (~02/2023) Social History Smoking/Tobacco Use Status: Current every day Smoking risk assessment performed?: Yes Drug use: Daily Substance use type: opiates Housing: other Exam Narrative Exam Narrative: 1.Const: Well-nourished, Well-developed, appearing stated age 2.Eyes: PERRL, no conjunctival injection, and symmetrical lids. 3.ENT: Atraumatic external nose and ears. Moist MM. Neck: Symmetric, trachea midline, No thyromegaly. 4.CVS: +S1/S2, No murmurs or gallops. Peripheral pulses 2+ and equal in all extremities. Brisk capillary refill in all extremities. 5.RESP: Unlabored respiratory effort. Clear to auscultation bilaterally. No wheezes rales or rhonchi 6.GI: Soft, Nontender/Nondistended, No hepatosplenomegaly. No guarding or rebound. Abdomen demonstrates postoperative incision sites that are clean dry and intact. Appropriately tender on deep palpation secondary to postsurgical status 7.MSK: Normocephalic/Atraumatic, Extremities w/o deformity or ttp No cyanosis or clubbing, Normal movement of all extremities 8.Skin: Warm, Dry. No rashes or lesions. 9.Neuro: No clear unilateral facial droop. Questionable minimal droop on the left-hand side though. Tongue seems to deviate and be isolated to movement only on the left-hand side. Tongue does protrude somewhat, but it does not look overly swollen or show signs of angioedema. Patient demonstrates normal movement of the upper and lower extremities however she has notably diminished and almost insensate level of sensation for the entire left side of her body. Including her face arm neck flank and leg. Right-sided which is normal sensation. 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 Normal movement of the upper and lower extremity otherwise. 10.Psych: (AAO) x3. Appropriate mood and affect Course Vital Signs Vital signs: Vital Signs Temperature 36.6 C 03/01/23 23:05 Pulse 82 03/01/23 23:05 Respiratory Rate 16 03/01/23 23:05 Blood Pressure 129/76 03/01/23 23:05 Pulse Oximetry 100 03/01/23 23:05 Temperature 36.6 C 03/01/23 23:05 Temperature Source Temporal Artery Scan 03/01/23 23:05 Pulse 82 03/01/23 23:05 Respiratory Rate 16 03/01/23 23:05 Respiratory Effort Normal, Non-Labored 03/01/23 23:10 Respiratory Depth Normal 03/01/23 23:10 Respiratory Pattern Normal 03/01/23 23:10 Blood Pressure 129/76 03/01/23 23:05 Blood Pressure Position Sitting 03/01/23 23:05 Pulse Oximetry 100 03/01/23 23:05 Oxygen Delivery Method Room Air 03/01/23 23:05 Oxygen Flow Rate 0 03/01/23 23:05 Pain Level 10 03/01/23 23:17
[2023-03-01] MEDS: Omnipaque 350 MG/ML 100 ML BTL IJ (23:39)
[2023-03-01] MEDS: Normal Saline - Diluent 50 ML VIAL IJ (23:40)
[2023-03-01 23:43] LABS: INR 1.1 (0.9-1.1); PTT Activated 27.4 sec (21.5-31.9)
[2023-03-01] MEDS: Normal Saline 500 ML IV (23:44)
[2023-03-01 23:47] LABS: ALT 21 U/L (14-59); AST 16 U/L (15-37); Albumin 4.1 g/dL (3.4-5.0); Alkaline Phosphatase 114 U/L (46-116); Anion Gap 10.9 mmol/L (3-11); BUN 8 mg/dL (7-18); Bilirubin, Total 0.4 mg/dL (0.2-1.0); CO2 27.1 mmol/L (21.0-32.0); CREATININE 0.7 mg/dL (0.55-1.02); Calcium 9.8 mg/dL (8.5-10.1); Chloride 101 mmol/L (98-107); ETHANOL BLOOD < 3.0 mg/dL (<10); Estimated GFR 115.59 (mL/min/1.73m2); Glucose 103 mg/dL (74-106); Magnesium 2.1 mg/dL (1.8-2.4); Potassium 3.5 mmol/L (3.5-5.1); Sodium 139 mmol/L (136-145); Total Protein 8.6 g/dL (6.4-8.2)
[2023-03-02] VITALS (9 sets, daily range): BP systolic 129–143; BP diastolic 74–80; PULSE 53–70; RESP 15–18; TEMP 36–37.4; O2SAT 98–99
--- NOTE | 2023-03-02 00:22 | DI.VRAD_ITS ---
PROCEDURE INFORMATION: Exam: CTA Head Without And With Contrast, Arteriography Exam date and time: 03/01/2023 11:33 PM Age: 37 years old Clinical indication: Stroke-like symptoms; Headache; Left facial droop; Additional info: Surgery yesterday, new seizure now w/ L deficits TECHNIQUE: Imaging protocol: Computed tomographic angiography of the head without and with contrast. Exam focused on the arteries. 3D rendering (Not supervised by radiologist): MIP and/or 3D reconstructed images were created by the technologist. Radiation optimization: All CT scans at this facility use at least one of these dose optimization techniques: automated exposure control; mA and/or kV adjustment per patient size (includes targeted exams where dose is matched to clinical indication); or iterative reconstruction. Contrast material: OMNI 350; Contrast volume: 100 ml; Contrast route: INTRAVENOUS (IV); Other technique: STROKE PROTOCOL was implemented. COMPARISON: No relevant prior studies available. FINDINGS: ANTERIOR CIRCULATION: Right internal carotid artery: Intracranial segment is patent with no significant stenosis or occlusion. No aneurysm. Right middle cerebral artery: No occlusion or significant stenosis. No aneurysm. Right anterior cerebral artery: No occlusion or significant stenosis. No aneurysm. Left internal carotid artery: Intracranial segment is patent with no significant stenosis. No aneurysm. Left middle cerebral artery: No occlusion or significant stenosis. No aneurysm. Left anterior cerebral artery: No occlusion or significant stenosis. No aneurysm. POSTERIOR CIRCULATION: Right vertebral artery: No occlusion or significant stenosis. No aneurysm. Left vertebral artery: No occlusion or significant stenosis. No aneurysm. Basilar artery: No occlusion or significant stenosis. No aneurysm. Right posterior cerebral artery: No occlusion or significant stenosis. No aneurysm. Left posterior cerebral artery: No occlusion or significant stenosis. No aneurysm. HEAD: Brain: There is no acute intracranial hemorrhage, mass effect or midline shift. There is no large acute territorial cerebral infarct. Cerebral ventricles: Normal. No ventriculomegaly. Bones/joints: Unremarkable. No acute fracture. Paranasal sinuses: Visualized sinuses are normal. No fluid levels. Mastoid air cells: Visualized mastoids are normal. No mastoid effusion. Soft tissues: Unremarkable. IMPRESSION: 1. No acute intracranial hemorrhage, mass effect or midline shift. 2. No arterial occlusion or significant stenosis. ASSESSMENT: ASPECTS (Thu Stroke Program Early CT Score) is 10. PROCEDURE INFORMATION: Exam: CTA Neck Without And With Contrast Exam date and time: 03/01/2023 11:33 PM Age: 37 years old Clinical indication: Stroke-like symptoms; Headache; Left facial droop; Additional info: Surgery yesterday, new seizure now w/ L deficits TECHNIQUE: Imaging protocol: Computed tomographic angiography of the neck without and with contrast. 3D rendering (Not supervised by radiologist): MIP and/or 3D reconstructed images were created by the technologist. Radiation optimization: All CT scans at this facility use at least one of these dose optimization techniques: automated exposure control; mA and/or kV adjustment per patient size (includes targeted exams where dose is matched to clinical indication); or iterative reconstruction. Contrast material: OMNI 350; Contrast volume: 100 ml; Contrast route: INTRAVENOUS (IV); COMPARISON: No relevant prior studies available. FINDINGS: Right common carotid artery: No stenosis. No dissection or occlusion. Right internal carotid artery: No stenosis of the extracranial segment. No dissection or occlusion. Right external carotid artery: No occlusion or stenosis of the origin. Left common carotid artery: No stenosis. No dissection or occlusion. Left internal carotid artery: No stenosis of the extracranial segment. No dissection or occlusion. Left external carotid artery: No occlusion or stenosis of the origin. Right vertebral artery: No stenosis. No dissection or occlusion. Left vertebral artery: No stenosis. No dissection or occlusion. Soft tissues: Normal. No significant soft tissue swelling. Bones/joints: No acute fracture. IMPRESSION: No stenosis or occlusion. REFERENCES: NASCET CRITERIA. The degree of stenosis in the cervical segment of the internal carotid artery is based on NASCET criteria. Normal is no stenosis. Mild is less than 50% stenosis. Moderate is 50-69% stenosis. Severe is 70% to 99% stenosis. Total occlusion is no detectable patent lumen. Dictated and Authenticated by: Keesha Rowley MD. Ordering:LAURA Bob MD
[2023-03-02] MEDS: Ondansetron 4 MG/2 ML VIAL IVP ×2 (00:42→08:57)
[2023-03-02] MEDS: Ketorolac 15 MG/ML VIAL IVP (00:42)
[2023-03-02] MEDS: levETIRAcetam 2,000 MG in Normal Saline 100 ML 400 MG IVPB (01:41)
[2023-03-02] MEDS: LORazepam 2 MG/ML VIAL 1 MG IVP (01:41)
[2023-03-02 01:49] LABS: *AMPHETAMINES SCREEN URINE Negative (Negative); *BARBITURATES SCREEN URINE Negative (Negative); *BENZODIAZEPINES SCREEN URINE Negative (Negative); Cannabinoids THC Negative (Negative); Cocaine Screen,Urine Negative (Negative); METHADONE URINE SCREEN Negative (Negative); OPIATES URINE SCREEN Negative (Negative)
[2023-03-02 02:01] LABS: Tricyclic Antidepressants Negative (Negative)
--- NOTE | 2023-03-02 05:40 | W.PM.HP.N ---
Date of service: 03/02/23 Time of Service: 05:40 Assessment and Plan Assessment and plan (1) Seizure: Start date: 03/02/23 Status: Acute Assessment and plan: This is a 37-year-old lady with recent laparoscopic appendectomy and then presented with only new medication with ibuprofen and tramadol presenting with new onset seizure without incontinence of urine or stool or biting her tongue and seizure reported as lasting 5 minutes. She does have a affect with schizoaffective disorder. She was loaded with Keppra and continues to have left hemiparesis with sensation changes which is thought to be possible Casey's paralysis and atypical. CTA of the head and neck were negative and patient does have plans for MRI of the brain as available. She will be on observation with persistent neurological symptoms and treated for seizure disorder with loading of 2 g Keppra and now that it is milligrams orally twice daily. She is a full code. (2) Acute left hemiparesis: Start date: 03/02/23 Status: Acute Assessment and plan: This is thought to be Casey's paralysis status post seizures but prolonged and atypical. Imaging thus far nonrevealing and patient to have MRI of the brain when available. Close observation with neurological monitoring until further imaging. If she worsens consider reevaluation with imaging and transfer to higher level care. She is a full code. (3) Sensation disorder: Start date: 03/02/23 Status: Acute Assessment and plan: This is thought to be associated with possible Casey's paralysis and atypical. MRI as ordered and as available. If progressive symptoms consider transfer to higher level of care with more immediate imaging and neurological consultation. (4) Schizo-affective schizophrenia, chronic condition: Status: Chronic Assessment and plan: On the no specific therapy at this time and did not present. Follow-up psychiatry. History of Present Illness History of Present Illness Chief Complaint: Witnessed new onset seizure with left-sided weakness Narrative: This is a 37-year-old female patient who resides in group home who recently had admission for acute appendicitis with laparoscopic appendectomy which was an uncomplicated course presented that time with abdominal symptoms and nausea and vomiting with syncope. She returned to the group home postoperatively and was on ibuprofen with tramadol for pain and not on any psychiatric meds with a history of schizoaffective disorder or schizophrenia. She had a witnessed seizure which was stated to last 5 minutes without incontinence of urine or stool or biting her tongue. As she was postictal she was having left-sided symptoms with decreased sensation and weakness. The weakness mostly improved but persists. She was loaded with Keppra 2000 mg IV and will be on Keppra 750 mg twice daily as per neurology consultation recommended. ED physician did speak to [facility] neurology. Patient was comfortable and asking for food and water at the time I saw her with no tremor but not fully awake. She does have an odd affect with her schizoaffective disorder. She is offering no complaints of pain or discomfort and follow commands slowly. Reviewed ED note for details of history of presenting problem and past medical and family history. Patient has no previous history of seizure disorder. She has had no head trauma. She is on new medical therapy with tramadol taken for pain. Patient denies any headache but does state it is notably conversant. She is a full code. Review of Systems Narrative: 13 point review of systems otherwise unrevealing or unobtainable with patient having minimal conversation. PFSH All Active Problems (Updated 03/02/23 @ 07:47 by Maurizio Glez) Acute left hemiparesis (Acute) Schizo-affective schizophrenia, chronic condition (Chronic) Seizure (Acute) Sensation disorder (Acute) Surgical History S/P laparoscopic appendectomy (~02/2023) Social History Smoking/Tobacco Use Status: Current every day Smoking risk assessment performed?: Yes Drug use: Daily Substance use type: opiates Housing: other Meds Allergies and Home Medications Allergies Allergy/AdvReac Type Severity Reaction Status Date / Time Fish Containing Products Allergy Intermediate Unverified 03/01/23 23:19 Home Medications Medication Instructions Recorded Confirmed Type ibuprofen 200 mg tablet 1 tab PO PRN PRN 04/25/14 02/28/23 History tramadol 50 mg tablet 50 mg PO Q8H PRN #24 tabs 03/01/23 Rx Exam Narrative Exam Narrative: General: Patient appears appropriate for age, easily aroused and having minimal conversation asking for food and water but not answering questions except for 1 word answers. She appears alert and oriented at least to person and place. She is in no acute distress and somnolent. HEENT: Normocephalic, eyes with pupils equal react light symmetrically, extraocular movement tachycardia sclera anicteric. Oropharynx with moist oral mucosa and tongue protruded midline with no obvious tongue injury. Patient is not cooperative opening mouth widely or sticking tongue out completely. Fair dentition. Neck: Supple without JVD. Back: Normal posture without CVA tenderness. Lungs: Fair aeration clear to auscultation percussion. Breast: Exam deferred. Heart: Regular rate and rhythm with no appreciable murmur or gallop. Abdomen: Normal contour, soft without focal guarding status post recent laparoscopy for appendicitis. No focal tenderness appreciated. No palpable hepatosplenomegaly. Genitalia/rectal: Exam deferred. Extremities: No clubbing, cyanosis or pitting edema. Peripheral pulses intact. Skin: Normal color, warm and dry. Neuro: Cranial nerves II through XII grossly intact, patient has perceived decreased sensation on the left upper and lower extremity as well as face, no facial droop, decreased grasp and dorsiflexion of ankle on the left being 4 out of 5 strength with 1 beat clonus on the left but no Babinski. No tremor. Psych: Flattened, odd affect with mood difficult to assess as minimal conversation. No abnormal thought processes manifested. Remote and recent memory not testable with patient having minimal conversation. Results Imaging Imaging Studies: Exam: CTA Head Without And With Contrast, Arteriography Exam date and time: 03/01/2023 11:33 PM Age: 37 years old Clinical indication: Stroke-like symptoms; Headache; Left facial droop; Additional info: Surgery yesterday, new seizure now w/ L deficits TECHNIQUE: Imaging protocol: Computed tomographic angiography of the head without and with contrast. Exam focused on the arteries. 3D rendering (Not supervised by radiologist): MIP and/or 3D reconstructed images were created by the technologist. Radiation optimization: All CT scans at this facility use at least one of these dose optimization techniques: automated exposure control; mA and/or kV adjustment per patient size (includes targeted exams where dose is matched to clinical indication); or iterative reconstruction. Contrast material: OMNI 350; Contrast volume: 100 ml; Contrast route: INTRAVENOUS (IV);? Other technique: STROKE PROTOCOL was implemented. COMPARISON: No relevant prior studies available. FINDINGS: ANTERIOR CIRCULATION: Right internal carotid artery: Intracranial segment is patent with no significant stenosis or occlusion. No aneurysm. Right middle cerebral artery: No occlusion or significant stenosis. No aneurysm.? Right anterior cerebral artery: No occlusion or significant stenosis. No aneurysm.? Left internal carotid artery: Intracranial segment is patent with no significant stenosis. No aneurysm. Left middle cerebral artery: No occlusion or significant stenosis. No aneurysm. ? Left anterior cerebral artery: No occlusion or significant stenosis. No aneurysm.? POSTERIOR CIRCULATION: Right vertebral artery: No occlusion or significant stenosis. No aneurysm.? Left vertebral artery: No occlusion or significant stenosis. No aneurysm.? Basilar artery: No occlusion or significant stenosis. No aneurysm. Right posterior cerebral artery: No occlusion or significant stenosis. No aneurysm.? Left posterior cerebral artery: No occlusion or significant stenosis. No aneurysm.? HEAD: Brain: There is no acute intracranial hemorrhage, mass effect or midline shift. There is no large acute territorial cerebral infarct. Cerebral ventricles: Normal. No ventriculomegaly. Bones/joints: Unremarkable. No acute fracture. Paranasal sinuses: Visualized sinuses are normal. No fluid levels. Mastoid air cells: Visualized mastoids are normal. No mastoid effusion. Soft tissues: Unremarkable. IMPRESSION: 1. ? No acute intracranial hemorrhage, mass effect or midline shift. 2. ? No arterial occlusion or significant stenosis. ASSESSMENT: ASPECTS ([place] Stroke Program Early CT Score) is 10. PROCEDURE INFORMATION: Exam: CTA Neck Without And With Contrast Exam date and time: 03/01/2023 11:33 PM Age: 37 years old Clinical indication: Stroke-like symptoms; Headache; Left facial droop; Additional info: Surgery yesterday, new seizure now w/ L deficits TECHNIQUE: Imaging protocol: Computed tomographic angiography of the neck without and with contrast. 3D rendering (Not supervised by radiologist): MIP and/or 3D reconstructed images were created by the technologist. Radiation optimization: All CT scans at this facility use at least one of these dose optimization techniques: automated exposure control; mA and/or kV adjustment per patient size (includes targeted exams where dose is matched to clinical indication); or iterative reconstruction. Contrast material: OMNI 350; Contrast volume: 100 ml; Contrast route: INTRAVENOUS (IV);? COMPARISON: No relevant prior studies available. FINDINGS: Right common carotid artery: No stenosis. No dissection or occlusion. Right internal carotid artery: No stenosis of the extracranial segment. No dissection or occlusion. Right external carotid artery: No occlusion or stenosis of the origin.? Left common carotid artery: No stenosis. No dissection or occlusion. Left internal carotid artery: No stenosis of the extracranial segment. No dissection or occlusion. Left external carotid artery: No occlusion or stenosis of the origin.? Right vertebral artery: No stenosis. No dissection or occlusion. Left vertebral artery: No stenosis. No dissection or occlusion. Soft tissues: Normal. No significant soft tissue swelling. Bones/joints: No acute fracture. IMPRESSION: No stenosis or occlusion. Labs 03/01/23 23:25 03/01/23 23:25 Labs: Laboratory Results - last 24 hr 03/01/23 03/01/23 03/01/23 23:25 23:25 23:25 WBC 7.94 RBC 4.71 Hgb 13.0 Hct 39.4 MCV 84 MCH 27.6 MCHC 33.0 RDW 13.7 Plt Count 428 H MPV 8.2 Immature Gran % 0.4 Neutrophils % 72.3 Lymphocytes % 21.3 Monocytes % 5.5 Eosinophils % 0.0 Basophils % 0.5 Nucleated RBC % 0.0 Absolute Neutrophils 5.74 Absolute Lymphocytes 1.69 Absolute Monocytes 0.44 Absolute Eosinophils 0.00 Absolute Basophils 0.04 PT 11.0 INR 1.1 APTT 27.4 Sodium 139 Potassium 3.5 Chloride 101 Carbon Dioxide 27.1 Anion Gap 10.9 BUN 8 Creatinine 0.7 Est GFR (CKD-EPI 2020) 115.59 Glucose 103 Calcium 9.8 Magnesium 2.1 Total Bilirubin 0.4 AST 16 ALT 21 Alkaline Phosphatase 114 Total Protein 8.6 H Albumin 4.1 Urine Opiates Screen Urine Methadone Screen Ur Barbiturates Screen Ur Tricyclics Screen Ur Amphetamines Screen U Benzodiazepines Scrn Urine Cocaine Screen Ur THC Screen Ethyl Alcohol < 3.0 03/02/23 01:24 WBC RBC Hgb Hct MCV MCH MCHC RDW Plt Count MPV Immature Gran % Neutrophils % Lymphocytes % Monocytes % Eosinophils % Basophils % Nucleated RBC % Absolute Neutrophils Absolute Lymphocytes Absolute Monocytes Absolute Eosinophils Absolute Basophils PT INR APTT Sodium Potassium Chloride Carbon Dioxide Anion Gap BUN Creatinine Est GFR (CKD-EPI 2020) Glucose Calcium Magnesium Total Bilirubin AST ALT Alkaline Phosphatase Total Protein Albumin Urine Opiates Screen Negative Urine Methadone Screen Negative Ur Barbiturates Screen Negative Ur Tricyclics Screen Negative Ur Amphetamines Screen Negative U Benzodiazepines Scrn Negative Urine Cocaine Screen Negative Ur THC Screen Negative Ethyl Alcohol Last Vital Signs Temp 36.7 C 03/02/23 02:12 Pulse 60 03/02/23 02:12 Resp 15 03/02/23 02:12 BP 129/74 03/02/23 02:12 Pulse Ox 98 03/02/23 02:12 Time Spent Time spent with Patient: >75 minutes Time was spent: preparing to see the patient(eg.review tests), obtaining and/or reviewing separately otained hiistory, ordering medications,tests, procedures, referring, communicating with other health child care associate, indepentently interpreting results and care coordination
[2023-03-02] MEDS: Acetaminophen 325 MG TAB PO ×2 (07:41→11:56)
[2023-03-02] MEDS: levETIRAcetam 500 MG TAB 750 MG PO ×2 (07:42→19:40)
[2023-03-02] MEDS: Enoxaparin 40 MG/0.4 ML SYR SC (07:42)
[2023-03-02] MEDS: Normal Saline Flush 10 ML SYR IVP ×4 (07:42→16:18)
[2023-03-02] MEDS: Ketorolac 30 MG/ML VIAL IVP ×2 (08:56→16:19)
[2023-03-02 09:01] LABS: Platelet Count 380 10^3/uL (130-400)
[2023-03-02 09:25] LABS: TSH (W/Ref FT4) 1.12 uIU/mL (0.36-3.74)
[2023-03-02] MEDS: Mylanta Suspension 30 ML CUP PO (11:38)
--- NOTE | 2023-03-02 13:56 | NUR.NOTE ---
Nursing Note: pt rang due to incontinent episode of stool, upon assessment skin appeared clammy, pt has had c/o nausea, and indigestion throughout the day. Charge Nurse Allsion was notified about symptoms and was also notified about pt request to restart suboxone.
[2023-03-02] MEDS: Loperamide 2 MG CAP PO (14:23)
[2023-03-02] MEDS: Droperidol 5 MG/2 ML VIAL 2.5 MG IVP (14:23)
[2023-03-02] MEDS: Buprenorphine/Naloxone 4 mg/1 mg FILM 1 EACH SL (16:29)
--- NOTE | 2023-03-02 17:56 | INITIAL_ITS ---
Date of service: 03/02/23 Time of Service: 17:56 Care Management Initial Assmt Initial Assessment REASON FOR HOSPITALIZATION:: new onset seizures PREVIOUS FUNCTIONAL STATUS/SOCIAL/FAMILY SUPPORTS:: Frida lives in [place], [place] with a friend. She is not employed and is independent at baseline. She does not have any children. Frida is currently incarcerated in [facility]; she has been there for about a week. CURRENT FUNCTIONAL STATUS:: Frida was lying in bed accompanied by 2 corrections officers when CM met with her. She did not open her eyes when spoken to and answered with as few words as possible . She did admit to having some abdominal pain. Frida is here for new onset seizures. She will have a neurology consult and an MRI on Saturday. ADVANCE DIRECTIVES:: none on file Has patient been provided with info about the portal/API?: Yes Did the patient sign up for the portal?: No CODE STATUS:: Full Code INSURANCE COVERAGE / FINANCIAL ISSUES:: [facility] Correction[facility]/[employer] self pay CURRENT HOME/COMMUNITY SERVICES/EQUIPMENT:: none PRIMARY CARE PHYSICIAN:: Dionicio Carvajal POTENTIAL DISCHARGE NEEDS:: follow up with correctional facility staff PATIENT/FAMILY EDUCATION NEEDS:: review of discharge instructions, limitations, follow up plan, discuss [employer] TRANSPORTATION:: via correctional facility staff PLAN:: Anticipate Frida will return to the [facility] facility when medically cleared, She will follow up with their providers and plan of care and transport with correctional staff. PFS All Active Problems (Updated 03/02/23 @ 07:47 by Maurizio Glez) Acute left hemiparesis (Acute) Schizo-affective schizophrenia, chronic condition (Chronic) Seizure (Acute) Sensation disorder (Acute) Surgical History S/P laparoscopic appendectomy (~02/2023) Social History Smoking/Tobacco Use Status: Current every day Smoking risk assessment performed?: Yes Drug use: Daily Substance use type: opiates Housing: other
[2023-03-02] MEDS: hydrOXYzine HCL 25 MG TAB PO (19:40)
[2023-03-03] VITALS (8 sets, daily range): BP systolic 109–124; BP diastolic 69–85; PULSE 66–79; RESP 16–18; TEMP 36.6–37.5; O2SAT 97–100
[2023-03-03] MEDS: hydrOXYzine HCL 25 MG TAB PO (01:35)
[2023-03-03] MEDS: Ketorolac 30 MG/ML VIAL IVP ×2 (01:35→15:04)
[2023-03-03 07:20] LABS: HCT 35.1 % (36.0-46.0); HGB 11.8 g/dL (11.2-15.7); MCHC 33.6 % (32.0-36.0); MCV 83 fL (80-95); MPV 8.9 fL (8.0-11.0); Platelet Count 407 10^3/uL (130-400); RBC 4.21 10^6/uL (3.93-5.22); RDW 13.7 % (11.7-14.6)
[2023-03-03 07:40] LABS: ALT 23 U/L (14-59); AST 17 U/L (15-37); Albumin 3.4 g/dL (3.4-5.0); Alkaline Phosphatase 96 U/L (46-116); Anion Gap 11.8 mmol/L (3-11); BUN 6 mg/dL (7-18); Bilirubin, Total 0.4 mg/dL (0.2-1.0); CO2 25.2 mmol/L (21.0-32.0); CREATININE 0.7 mg/dL (0.55-1.02); Calcium 9.4 mg/dL (8.5-10.1); Chloride 102 mmol/L (98-107); Estimated GFR 115.59 (mL/min/1.73m2); Glucose 119 mg/dL (74-106); Magnesium 2.2 mg/dL (1.8-2.4); Potassium 3.5 mmol/L (3.5-5.1); Sodium 139 mmol/L (136-145); Total Protein 7.3 g/dL (6.4-8.2)
[2023-03-03] MEDS: Buprenorphine/Naloxone 4 mg/1 mg FILM 1 EACH SL (07:52)
[2023-03-03] MEDS: Enoxaparin 40 MG/0.4 ML SYR SC (07:52)
[2023-03-03] MEDS: levETIRAcetam 500 MG TAB 750 MG PO ×2 (07:53→20:34)
[2023-03-03] MEDS: Acetaminophen 325 MG TAB PO ×2 (11:00→20:34)
--- NOTE | 2023-03-03 15:21 | PGE_ITS ---
Date of Service Date of service: 03/03/23 Time of Service: 15:21 Assessment and Plan Assessment and plan (1) Seizure: Status: Acute Assessment and plan: seizure with left sided facial droop, thought to be possible Casey's paralysis and atypical. CTA of the head and neck were negative, MRI of the brain pending. continue to monitor neurological symptoms and treated for seizure disorder with [facility] neurology consult pending (2) Acute left hemiparesis: Status: Acute Assessment and plan: thought to be Casey's paralysis status post seizures but prolonged and atypical. Imaging thus far nonrevealing and patient to have MRI of the brain Saturday. Close observation with neurological monitoring until further imaging. If she worsens consider reevaluation with imaging and transfer to higher level care. She is a full code. (3) Schizo-affective schizophrenia, chronic condition: Status: Chronic Assessment and plan: On the no specific therapy at this time. Follow-up psychiatry. (4) Opioid abuse: Status: Acute Assessment and plan: reported history of fentanyl abuse with mild withdrawal. was given suboxone with improvement in symptoms. will continue daily suboxone, prn hydroxyzine discussed with Dr Cornejo Objective Last Vital Signs Temp 36.7 C 03/03/23 10:58 Pulse 79 03/03/23 10:58 Resp 16 03/03/23 10:58 BP 109/72 03/03/23 10:58 Pulse Ox 99 03/03/23 10:58 Laboratory Results - last 24 hr 03/03/23 03/03/23 06:25 06:25 WBC 6.40 RBC 4.21 Hgb 11.8 Hct 35.1 L MCV 83 MCH 28.0 MCHC 33.6 RDW 13.7 Plt Count 407 H MPV 8.9 Sodium 139 Potassium 3.5 Chloride 102 Carbon Dioxide 25.2 Anion Gap 11.8 H BUN 6 L Creatinine 0.7 Est GFR (CKD-EPI 2020) 115.59 Glucose 119 H Calcium 9.4 Magnesium 2.2 Total Bilirubin 0.4 AST 17 ALT 23 Alkaline Phosphatase 96 Total Protein 7.3 Albumin 3.4 Time Spent with Patient Time Spent with Patient: 25-34 minutes Time was spent: preparing to see the patient(eg.review tests), obtaining and/or reviewing separately otained hiistory, ordering medications,tests, procedures and counseling the patient
[2023-03-04] MEDS: Ketorolac 30 MG/ML VIAL IVP (07:34)
[2023-03-04] MEDS: hydrOXYzine HCL 25 MG TAB PO ×2 (07:34→20:36)
[2023-03-04] MEDS: levETIRAcetam 500 MG TAB 750 MG PO ×2 (07:34→20:36)
[2023-03-04] MEDS: Normal Saline Flush 10 ML SYR IVP (07:34)
[2023-03-04] MEDS: Buprenorphine/Naloxone 4 mg/1 mg FILM 1 EACH SL (07:35)
--- NOTE | 2023-03-04 08:00 | DI.MRI_ITS ---
Exam(s) MR BRAIN WO EXAM: MR BRAIN WO CLINICAL HISTORY: New onset seizures with focal sensory deficit symp TECHNIQUE: Multiplanar multisequence MRI of the brain was performed. COMPARISON: CT CT BRAIN NECK CTA from 03/01/2023 FINDINGS: VENTRICLES AND EXTRA AXIAL SPACES: Normal in size and morphology for the patient's age. MIDLINE SHIFT: None. CEREBRAL PARENCHYMA: No focus of restricted diffusion to suggest acute infarct. No space-occupying le wilfredo identified. HEMORRHAGE: None. BRAINSTEM/CEREBELLUM: Normal. VISUALIZED PARANASAL SINUSES/MASTOIDS:Clear. Vasculature: Normal flow void. PITUITARY GLAND: Unremarkable. ORBITS: Unremarkable. IMPRESSION: Unremarkable MRI of the brain. DATA REPOSITORY:
[2023-03-04] MEDS: Enoxaparin 40 MG/0.4 ML SYR SC (08:01)
[2023-03-04 09:09] VITALS: PULSE 84
[2023-03-04 09:17] VITALS: BP 97/59; PULSE 71; RESP 16; TEMP 36.8; O2SAT 94
[2023-03-04 09:51] LABS: Lyme Ab w Rflx to Lyme Confirm Negative (Negative)
[2023-03-04 12:53] VITALS: BP 104/67; PULSE 75; RESP 18; TEMP 36.6; O2SAT 99
[2023-03-04 15:00] VITALS: PULSE 60
[2023-03-04 15:41] VITALS: BP 100/65; PULSE 78; RESP 17; TEMP 36.5; O2SAT 98
--- NOTE | 2023-03-04 15:45 | CMPROGNOTE_ITS ---
Date of service: 03/04/23 Time of Service: 15:45 Care Management Progress Note Progress Note Text Progress Note Text: S/O: Frida remains inpatient, no change to overall plan, she remains in the custody of [facility] and will return there upon discharge. CM continues to follow. A: 37 year old female admitted to [facility] P: Anticipate Frida will return to the [facility] facility when medically cleared, She will follow up with their providers and plan of care and transport with correctional staff.
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
--- NOTE | 2023-03-04 16:47 | W.PM.DS.N ---
Date of service: 03/05/23 Time of Service: 11:33 DS: Diagnosis Discharge Diagnosis (1) Seizure: Status: Acute (2) Acute left hemiparesis: Status: Acute (3) Schizo-affective schizophrenia, chronic condition: Status: Chronic (4) Opioid abuse: Status: Acute Discharge Plan Disposition Patient Disposition: [facility] Condition: Stable Discharge Details Reason For Visit: New Onset Seizure Admit Date/Time: 03/02/23 01:14 Admit Provider: Maurizio Glez Attending Provider: Maurizio Glez Primary Care Provider: Dionicio Carvajal Hospital Course Hospital Course: This is a 37 year old female current incarcerated with history of fentanyl abuse who presented to the ED by EMS under police custody after experiencing an unresponsive period. She was here a few days prior under general surgery and underwent a lap appendectomy. it was uneventful and she was discharged back to the correctional facility. She did bite her tongue. Her imaging unremarkable. she was started on keppra. note to have left hemibody numbness and dysarthria. work up included: Work-up: -CTH (03/01/23): unremarkable. I reviewed these images personally and this is my personal interpretation.? -CTA head/neck (03/01/23): unremarkable. I reviewed these images personally and this is my personal interpretation.? -MRI brain w/o (03/04/23): unremarkable. as per rads.? Though I wonder if there is some element of lissenecephaly. I reviewed these images personally and this is my personal interpretation.? -Labs (03/01/23): W 7.94, Na 139, Cr 0.7, Mag 2.1, Ca 9.8, TSH 1.12, ETOH/UDS neg, Tick neg; THC + on 02/28/23; Tick panel pending recommendations for EEG and outpatient neurology follow up. Her hospital course was complicated with opioid withdrawal and she was placed on suboxone. Her symptoms improved and she has remained medically stable with no further gi or withdrawal symptoms, weakness and numbness improved. facial droop resolved. she is stable and ready for discharge back to the correctional facility. Patient's discharge was delayed by 1 day as she was noted to have a draining abscess on her right forearm. She does report that she has had this lesion for several weeks and thought initially that she got bit by a spider. A dose of Bactrim was given. Overnight her wound deroofed with moderate amount of thick purulent drainage drained. Left is a approximate 2 cm open wound with wound bed with good granulation tissue. Surrounding erythema has improved overnight. Will discharge back to correctional facility with recommendations for wet-to-dry dressing changes wound care consult if available and 2-week course of Bactrim DS. She should follow-up with correctional facility provider for further recommendations discussed with DR Cornejo. Home Meds and New Rx's Prescriptions: New loperamide 2 mg Capsule 2 mg PO Q4H PRN PRNQty: 12 0RF levetiracetam 500 mg Tablet 750 mg PO BID Qty: 60 0RF hydroxyzine HCl 25 mg Tablet 25 mg PO QID PRN PRNQty: 12 0RF buprenorphine-naloxone 4-1 mg Film 1 ea sublingual DAILY Qty: 3 0RF sulfamethoxazole-trimethoprim [Bactrim DS] 800-160 mg tablet 1 tab PO BID Qty: 28 0RF Continued ibuprofen 200 MG tablet 1 tab PO PRN PRN tramadol 50 mg tablet 50 mg PO Q8H PRNQty: 24 0RF Rx Instructions: Take 1 tablet by mouth up to every 8 hours if needed for severe pain. Discharge Instructions Instructions: Abscess (ED), New-Onset Seizure in Adults (DC) Additional Instructions: Take medications as prescribed only You will need outpatient neurology follow-up We have made recommendations for an outpatient EEG Wet-to-dry dressing twice daily Wound care consult if needed Stand Alone Forms: Nursing Discharge Form Referrals: Marietta Michaels MD [ [facility] STAFF PHYSICIAN] - (Please call the office to schedule an appointment) Activity:: Activity as Tolerated Equipment/Supplies:: No Equipment Needed Diet:: As Tolerated Discharge Orders Discharge Orders: Discharge Order (Routine); Ordered 03/05/23 Ordered By: Marianne Branch DS: Summary Time Spent with Patient providing and/or coordinating discharge services: Less than 30 minutes Status at Discharge Functional status at discharge: independent ambulation Overall status at discharge: patient is progressing back to baseline Mental Status: mental status grossly normal Speech and Movement: speech and movement normal Mood: congruent mood Affect: normal affect Exam Const General: no acute distress, disheveled, frail appearing (older than stated age) and ill appearing chronically Nutritional Appearance: thin Orientation: alert, awake and oriented x3 HENMT Head: normal to inspection Face and sinus: normal facial exam Mouth: moist mucous membranes abnormal Teeth and gingiva: poor dentition Chest Chest: normal inspection of the chest Resp Effort & Inspection: normal respiratory effort Cardio Rate: regular rate Rhythm: regular rhythm Neuro General: patient alert, patient awake and patient oriented x3 Cognition: normal cognition Speech: speech normal Motor: strength abnormal (4/5 weakness on left upper and lower ext) Sensory Exam: no sensory deficits noted Extrem General: normal to inspection Psych Mental Status: mental status grossly normal Speech and Movement: speech and movement normal Mood: congruent mood Affect: normal affect DS: Data Vitals/I&O Vitals and I&O: Vital Signs Temperature 36.5 C 03/04/23 15:41 Temperature Source Tympanic 03/04/23 15:41 Pulse 78 03/04/23 15:41 Pulse Rhythm Regular 03/04/23 07:46 Respiratory Rate 17 03/04/23 15:41 Respiratory Effort Normal, Non-Labored 03/04/23 07:46 Respiratory Depth Normal 03/04/23 07:46 Respiratory Pattern Normal 03/04/23 07:46 Blood Pressure 100/65 03/04/23 15:41 Blood Pressure Position Sitting 03/01/23 23:05 Pulse Oximetry 98 03/04/23 15:41 Oxygen Delivery Method Room Air 03/04/23 15:41 Oxygen Flow Rate 0 03/04/23 15:41 Pain Level 0 03/04/23 12:53 Comment RN informed of pain and BP 03/04/23 09:17 Intake & Output 03/03/23 03/04/23 03/04/23 23:59 11:59 23:59 Intake Total 250 / 250 Balance 250 / 250 Weight 55.5 kg Intake: Oral 250 / 250 Other: Urine Appearance Clear Clear Comment indepedant independent Stool Size Moderate Stool Characteristics Liquid Voiding Methods Toilet Toilet Data Completed and Pending Labs on day of discharge: Labs from last 24 hours 03/01/23 23:25 Lyme Disease Antibody Negative PFSH All Active Problems (Updated 03/03/23 @ 22:30 by Marianne Branch NP) Opioid abuse (Acute) Acute left hemiparesis (Acute) Schizo-affective schizophrenia, chronic condition (Chronic) Seizure (Acute) Sensation disorder (Acute) Surgical History S/P laparoscopic appendectomy (~02/2023) Social History Smoking/Tobacco Use Status: Current every day Smoking risk assessment performed?: Yes Drug use: Daily Substance use type: opiates Housing: other Time Spent with Patient Time Spent with Patient: <45 minutes Time was spent: preparing to see the patient(eg.review tests), ordering medications,tests, procedures, referring, communicating with other health senior resident care director and counseling the patient
[2023-03-04] MEDS: Sulfameth/Trimeth DS TAB 1 TAB PO (20:36)
[2023-03-05 07:15] VITALS: BP 102/70; PULSE 91; TEMP 36.3; O2SAT 99
[2023-03-05] MEDS: Acetaminophen 325 MG TAB PO (07:41)
[2023-03-05] MEDS: Buprenorphine/Naloxone 4 mg/1 mg FILM 1 EACH SL (07:42)
[2023-03-05] MEDS: Sulfameth/Trimeth DS TAB 1 TAB PO (08:31)
[2023-03-05] MEDS: levETIRAcetam 500 MG TAB 750 MG PO (08:31)
[2023-03-05 08:35] VITALS: BP 114/80; PULSE 99; RESP 18; TEMP 36.7; O2SAT 97
[2023-03-05] MEDS: Enoxaparin 40 MG/0.4 ML SYR SC (08:44)
[2023-03-05] MEDS: Ketorolac 30 MG/ML VIAL IM (09:27)
--- NOTE | 2023-03-05 11:47 | CMDISCH_ITS ---
Date of service: 03/05/23 Time of Service: 11:47 LACE Index Scoring Tool Questions: Length of Stay (in days): 3 Was the patient admitted via the E.D.?: Yes E.D. Visits: 2 Answers: Total Score: 8 Risk of Readmission: Low Risk Care Management Discharge Plan Reason for Hospitalization: new onset seizures Discharge Plan: Frida will return to the [facility] when medically cleared, She will follow up with their providers and plan of care and transport with correctional staff. Patient/Family Education Needs: Review discharge instructions, discuss Ask Me Three. Disposition Disposition: Other ([facility] )
--- NOTE | 2023-03-05 13:13 | NUR.NOTE ---
Nursing Note: report given to nurse at the [facility] [place], pt is in transport.
[2023-03-05 20:21] LABS: Anaplasma phagocytophilum Negative (Negative); B. miyamotoi PCR Negative (Negative); Babesia divergens/MO-1 Negative (Negative); Babesia duncani Negative (Negative); Babesia microti Negative (Negative); Ehrlichia chaffeensis Negative (Negative); Ehrlichia ewingii/canis Negative (Negative); Ehrlichia muris eauclairensis Negative (Negative)
== END 2023-03-05 12:49 | DRG 101 ==
LOC: ER 03-02 01:27 → MS 03-02 02:09
PROVIDERS: Admitting Provider Family Medicine; Emergency Provider Student in an Organized Health Care Education/Training Program; PCP Specialist/Technologist Athletic Trainer; Visit Provider Family Medicine
DX: R56.9 Unspecified convulsions (principal); F11.20 Opioid dependence, uncomplicated; L02.413 Cutaneous abscess of right upper limb; F25.9 Schizoaffective disorder, unspecified; G83.84 Todd's paralysis (postepileptic); R20.2 Paresthesia of skin; F10.11 Alcohol abuse, in remission
CPT/HCPCS: 36415; 70496; 70498; 80053; 80307; 85027; 87077; 87798; 93005; 96365; 96367; 96375; 99285; J1650; 70551; 80320; 83735; 84443; 85025; 85049; 85610; 85730; 86618; 87070; 87186; 93010; 99223; 99233; 99238; J0131; J1790; J1885; J1953; J2060; J2405; J3490